=== PATIENT | male | born 1985 | race Caucasian/White ===

== ENCOUNTER 2018-08-03 11:16 | Emergency (ER) | payer MEDICAID, SELFPAY ==
[2018-08-03 11:17] VITALS: BP 131/78; PULSE 100; RESP 18; TEMP 36.9; O2SAT 98; BMI 28.8
--- NOTE | 2018-08-03 14:25 | ED.VISSUMM ---
- ER Visit Summary Date of Service: 08/03/18 Chief Complaint: Constipation History of Present Illness: The patient is a 33 M with constipation over the past 5 days. He thinks this is secondary to Seroquel. He has no fever chills he has no abdominal pain. Physical Examination: Patient has a soft and nontender abdomen no obvious dural mass. Emergency Department Course and Treatment: Abdominal x-ray done per protocol demonstrates constipation. Patient will be discharged with [facility] Discharge stable condition Impression: Constipation This note was generated with [employer] dictation software. It may contain incorrect words, spelling, and punctuation that were not noted in review of the chart prior to signing ED Disposition - Plan for ED Patient: Disposition: Home or Assisted Living Chief Complaint: Constipation Instructions: ED Constipation Referrals: Care Physician,No Primary [Primary Care Provider] - 3-5 Days
[2018-08-03] MEDS: Electrolyte Solution/Peg's 4000 ML 2000 ML PO (14:54)
== END 2018-08-03 15:09 | disposition home or self-care (01) ==
PROVIDERS: Emergency Provider Emergency Medicine
DX: K59.00 Constipation, unspecified (principal); F20.9 Schizophrenia, unspecified; Z79.899 Other long term (current) drug therapy
CPT/HCPCS: 74018; 99282

== ENCOUNTER 2020-10-22 17:43 | Emergency (ER) | payer OTHER, MEDICAID, SELFPAY ==
[2020-10-22 17:45] VITALS: BP 142/85; PULSE 79; RESP 15; TEMP 36; O2SAT 99; BMI 30.2
--- NOTE | 2020-10-22 18:11 | ED.DCSUM_ITS ---
History of Present Illness Chief Complaint: Back Informant: Patient Onset: Today Current Severity: Mild Maximum Severity: Moderate Narrative: Patient presents secondary to right lower back pain while lifting boxes at work. He states he was lifting some boxes and trying to reach over a pile in front of him. He felt something pull in his right lower back. Anytime he attempts to turn or move he feels sharp pain. Pain does not radiate down his arms or legs. There was no direct trauma and no fall. Past Medical History - Allergies and Home Meds Allergies/Adverse Reactions: Allergies No Known Allergies Allergy (Verified 10/22/20 17:44) Primary Care Physician: Care Physician,No Primary [Primary Care Provider] - Past Medical History: - - Mental illness Smoking Status: Never smoker Review of Systems General: Denies: Chills, Fever Eyes: Denies: Visual changes - bilaterally ENT: Denies: Bilateral ear pain Cardiovascular: Denies: Chest pain Respiratory: Denies: Dyspnea, Cough Gastrointestinal: Denies: Abdominal pain, Vomiting, Diarrhea Genitourinary: Denies: Dysuria Musculoskeletal: Reports: Back pain. Denies: Extremity Pain Neurological: Denies: Headache, Weakness, Parasthesia Hematologic: Denies: Easy bruising, Easy bleeding Allergy: Denies: Uticaria Physical Exam Vital Signs/Narrative: Vital Signs Temp Pulse Resp BP Pulse Ox 10/22/20 17:45 96.8 F L 79 15 142/85 H 99 Inital Vital Signs reviewed: Yes General: Well nourished, Well developed Head: Normocephalic ENT: Moist mucous membranes Neck: Supple Cardiovascular: Regular rate, Regular rhythm Respiratory: No distress, CTA bilaterally Abdomen: Soft, Nontender Back: - - No midline thoracic or lumbar tenderness. Mild tenderness in the right low lumbar paraspinals. Extremities: Nontender, No edema Skin: Normal color, No rash Neurological: Alert, Oriented x3 Psychological: Normal affect Diagnostic/Tx/Re-eval - Medical Decision Making I discussed with the patient the pain is all muscular in nature. With no direct trauma and no midline tenderness I do not feel x-rays to be beneficial. He will be given naproxen and Flexeril along with Lidoderm patch. He is to follow-up with corporate care. ED Disposition - Plan for ED Patient: Disposition: Home or Assisted Living Diagnosis: Strain of lumbar paraspinal muscle Instructions: ED LUMBAR SPRAIN/STRAIN Prescriptions: cycloBENZAPRine HCl [Flexeril] 10 mg PO TID PRN #20 tab PRN Reason: Muscle Spasm Transmission Status: Pending to [id number] Lidocaine [Lidoderm Patch] 1 patch TOPICAL DAILY #3 patch Transmission Status: P[facility] to [id number] Naproxen [Naprosyn] 500 mg PO BID PRN PRN #20 tab PRN Reason: Pain Score 4-10 [id number] Referrals: [facility] [GROUP OF PHYSICIANS] - 2 Days for wound check
[2020-10-22] MEDS: Naproxen 500 MG Tablet PO (18:33)
[2020-10-22] MEDS: Lidocaine 5% Patch 1 PATCH TOPICAL (18:33)
[2020-10-22 18:36] VITALS: BP 129/88; PULSE 62; RESP 17; O2SAT 99
== END 2020-10-22 18:37 | disposition home or self-care (01) ==
LOC: ED 18:16
PROVIDERS: Emergency Provider Emergency Medicine
DX: S39.012A Strain of muscle, fascia and tendon of lower back, initial encounter (principal); X58.XXXA Exposure to other specified factors, initial encounter
CPT/HCPCS: 99285

== ENCOUNTER 2022-06-16 22:23 | Emergency (ER) | payer MEDICAID, SELFPAY ==
[2022-06-16 22:24] VITALS: BP 146/96; PULSE 85; RESP 18; TEMP 37.2; O2SAT 98; BMI 29.5
--- NOTE | 2022-06-16 23:54 | ED.VIS.DENTA ---
HPI History of Present Illness Chief Complaint: Dental Informant: patient Narrative Narrative: Worsening right upper dental pain past 3 days. No current hot and cold sensitivities no fevers. He has been having symptoms past few weeks. Had initial dental feeling approximately 7 weeks ago. Reported he returned last week stated initial procedure may hit a nerve, additional filling was performed. Hot cold sensitive resolved since then however pain increased past 3 days. Using Tylenol ibuprofen with no relief. He called the dentist today started on amoxicillin has an appointment tomorrow however due to unbearable pain comes to the ED today. Prior similar symptoms: Yes PFSH PFSH Medical History Back pain Fatigue Home Medications naproxen 250 mg tablet 250 mg PO BID PRN Pain 10/24/20 [History Last Taken Unknown] qeodon 80 mg PO QHS 10/24/20 [History Last Taken Unknown] acetaminophen 500 mg tablet 500 mg PO Q6H PRN Pain 06/16/22 [History Last Taken Unknown] hydrocodone-acetaminophen 5-325mg 5mg-325mg 1 tab PO Q6H PRN pain 1 day #4 tabs 06/16/22 [Rx Last Taken Unknown] Allergy/AdvReac Type Severity Reaction Status Date / Time No Known Allergies Allergy Verified 06/16/22 22:26 Family History Other Prostate cancer Social History Smoking Status: Former smoker alcohol intake: never ROS ROS ED Constitutional Constitutional ED: Denies chills, fever(s) or sweats Eyes Eyes: Denies change in vision ENT ENT ED: Reports other Details: Dental pain ; Denies dysphagia or sore throat Cardiovascular Cardiovascular: Denies chest pain, leg edema, palpitations or racing heartbeat Respiratory/Chest Respiratory/Chest: Denies cough, dyspnea or dyspnea on exertion Gastrointestinal Gastrointestinal: Denies abdominal pain, diarrhea, nausea or vomiting Genitourinary Genitourinary ED: Denies dysuria, hematuria or urinary frequency Musculoskeletal Musculoskeletal: Denies back pain, extremity pain or neck pain Integumentary Denies rash or wounds Neurologic Neurologic: Denies headache(s), paresthesias or weakness EXAM Physical Exam Const Vital Signs: 06/16/22 22:24 Temperature 99 F Temperature Source Temporal Pulse Rate 85 Respiratory Rate 18 Blood Pressure 146/96 H Blood Pressure Mean 112 Pulse Ox 98 Oxygen Delivery Method Room Air Positive well nourished and well developed General Appearance ED: well developed and NAD HEENT Reports moist mucous membranes HEENT Narrative: Tender to tooth percussion #5, filling was noted to be intact there is no gum swelling. There is slight maxillary swelling noted. No fluctuance. normocephalic and atraumatic Eyes PERRL, EOMs intact bilaterally and conjunctivae normal General Eye ED: Yes normal appearance of both eyes Neck no lymphadenopathy and supple General: Negative for tenderness Chest Wall Chest: Negative for tenderness Resp normal respiratory effort and normal air movement Effort and Inspection: symmetric chest movement; Negative for respiratory distress Cardio regular rate, regular rhythm and no murmurs Peripheral Pulses: pulses 2+ throughout GI normal to inspection, nondistended, normoactive bowel sounds and non-tender Palpation: Negative for guarding or rebound tenderness present Back/Spine no CVA tenderness and no thoracic nor lumbar tenderness Extremity normal to inspection General Extremety ED: Negative for edema or tenderness General Extremity: Negative for edema Neuro oriented x3 and no sensory deficits noted Sensorium / Orientation: awake and alert Skin no rashes or lesions noted and no wounds MDM MDM MDM Narrative Medical decision making narrative: Patient increasing dental pain is currently on amoxicillin. [facility] report is negative. He drove here, meds to bed for 4 tabs of hydrocodone. He will keep his dental appointment tomorrow. Discharge Plan Triage Chief Complaint: Dental ED Provider: Jean-Claude Duke Dx/Rx/DC Orders Clinical Impression: Dentalgia Instructions: ED Dental Pain Prescriptions: New hydrocodone-acetaminophen 5-325 mg tablet 1 tab PO Q6H PRN (Reason: pain) 1 Days Qty: 4 0RF No Action qeodon 80 mg PO QHS naproxen 250 mg tablet 250 mg PO BID PRN (Reason: Pain) acetaminophen 500 mg Tablet 500 mg PO Q6H PRN (Reason: Pain) Primary Care Provider: Care Physician,No Primary Referrals: Care Physician,No Primary [Primary Care Provider] - Activity Restrictions/Additional Instructions: Continue your amoxicillin antibiotic. Take pain medicine as prescribed. Keep your dentist follow-up tomorrow. Disposition Disposition: Home, Self Care
== END 2022-06-17 00:25 | disposition home or self-care (01) ==
PROVIDERS: Emergency Provider Emergency Medicine; Visit Provider Emergency Medicine
DX: K08.89 Other specified disorders of teeth and supporting structures (principal); Z87.891 Personal history of nicotine dependence
CPT/HCPCS: 99282

== ENCOUNTER 2023-06-22 14:18 | Emergency (ER) | payer MEDICAID, SELFPAY ==
[2023-06-22] VITALS (7 sets, daily range): BP systolic 128–140; BP diastolic 83–86; PULSE 80–95; RESP 16–18; TEMP 36.4; O2SAT 99–100; BMI 26.6
--- NOTE | 2023-06-22 14:42 | EKG12_ITS ---
Test Reason : DIZZY Blood Pressure : / mmHG Vent. Rate : 078 BPM Atrial Rate : 078 BPM P-R Int : 166 ms QRS Dur : 086 ms QT Int : 384 ms P-R-T Axes : 062 057 046 degrees QTc Int : 437 ms Normal sinus rhythm Normal ECG Confirmed by AARON LOERA, TAN ([id number]), online editor SERAFIN MANCERA ([id number]) on 06/24/2023 9:28:32 AM Referred By: Confirmed By:TAN WALKER MD
--- NOTE | 2023-06-22 14:42 | EX.ED.VIS.PS ---
HPI HPI - Psych History of Present Illness Chief Complaint: Suicidal Detail of Chief Complaint: Suicidal ideation Informant: patient Narrative Narrative: Patient presents to the emergency department with thoughts of self-harm. Patient states that he is schizophrenic. Patient compliant with his medications. Patient admits to hearing voices if he concentrates but usually cannot make out what they are saying or who they are. Patient for the last 3 days feeling like he has no options and feeling suicidal. Plan would be to hang himself. Patient is never attempted to harm himself before. He denies any overdoses or illicit drug use. Denies recent illness. Patient states that he just feels irritated and fatigued and complains of muscle spasms and he has felt this way all the time for the last 7 years. Denies homicidal ideations. [facility] Medical History (Updated 06/22/23 @ 18:[address] Stacie Mckeon DO) Back pain Fatigue Schizophrenia Home Medications naproxen 250 mg tablet 250 mg PO BID PRN Pain 10/24/20 [History Last Taken Unknown] qeodon 80 mg PO QHS 10/24/20 [History Last Taken Unknown] acetaminophen 500 mg tablet 500 mg PO Q6H PRN Pain 06/16/22 [History Last Taken Unknown] hydrocodone-acetaminophen 5-325mg 5mg-325mg 1 tab PO Q6H PRN pain 1 day #4 tabs 06/16/22 [Rx Last Taken Unknown] ziprasidone HCl 80 mg capsule (Geodon) 80 mg PO DAILY SCHIZOPHRENIA 06/22/23 [History Last Taken 06/21/23] Allergy/AdvReac Type Severity Reaction Status Date / Time No Known Allergies Allergy Verified 06/22/23 14:21 Family History Other Prostate cancer Social History Smoking Status: Former smoker alcohol intake: never ROS ROS ED Review of Systems ROS Unobtainable: other Constitutional Constitutional ED: Reports lethargy; Denies chills, fever(s), sweats or weight loss Eyes Eyes: Denies blurry vision, change in vision or diplopia ENT ENT ED: Denies rhinorrhea or sore throat Cardiovascular Cardiovascular: Denies chest pain, orthopnea or racing heartbeat Respiratory/Chest Respiratory/Chest: Denies cough, dyspnea, dyspnea on exertion, orthopnea or sputum Gastrointestinal Gastrointestinal: Denies abdominal pain, diarrhea, nausea or vomiting Genitourinary Genitourinary ED: Denies dysuria, hematuria or urinary frequency Musculoskeletal Musculoskeletal: Denies arthralgias, back pain, myalgias or neck pain Integumentary Denies abscess, Abrasions or rash Neurologic Neurologic: Denies headache(s) or weakness Psychiatric Psychiatric: Reports depression, suicidal ideation and suicidal thoughts; Denies anxiety Endocrine Endocrinology: Denies polydipsia, polyphagia or polyuria Hematologic/Lymphatic Hematologic/Lymphatic: Denies easy bleeding, easy bruising or lymphadenopathy Allergic/Immunologic Allergic/Immunologic ED: Denies mouth swelling, tongue swelling or urticaria EXAM Physical Exam Const Vital Signs: 06/22/23 14:18 06/22/23 16:00 06/22/23 20:37 Temperature 97.5 F L Temperature Source Temporal Pulse Rate 95 82 Respiratory Rate 18 16 16 Blood Pressure 140/83 H Blood Pressure Mean 102 Pulse Ox 100 99 Oxygen Delivery Method Room Air Room Air Positive well nourished and well developed General Appearance ED: well developed and NAD HEENT Reports TM's clear and moist mucous membranes normocephalic and atraumatic; Negative for trauma or tenderness Tympanic Membrane ED: Yes TM's clear Eyes PERRL and EOMs intact bilaterally General Eye ED: Negative for pale conjunctiva or scleral icterus Neck no lymphadenopathy, supple and no JVD General: Negative for tenderness Chest Wall inspection of chest normal and palpation of chest normal Chest: Negative for tenderness Resp normal respiratory effort and clear to auscultation bilaterally Effort and Inspection: Negative for respiratory distress or pain with movement Auscultation: Negative for rhonchi, wheezes or diminished lung sounds Cardio regular rate, regular rhythm, S1 normal heart sound, S2 normal heart sound and no murmurs Peripheral Pulses: pulses 2+ throughout GI normal to inspection, nondistended, normoactive bowel sounds, soft to palpation, non-tender, non-distended and no masses Back/Spine no CVA tenderness and no thoracic nor lumbar tenderness Extremity normal to inspection General Extremety ED: Negative for edema General Extremity: Negative for edema Neuro oriented x3, CN's II-XII intact bilaterally, no sensory deficits noted and gait normal Sensorium / Orientation: awake, alert, oriented to person, oriented to place and oriented to time Motor Exam: strength 5/5 throughout and strength abnormal Psych mental status grossly normal Psych Narrative: Patient feeling suicidal and feeling agitated. Speech somewhat flat and slowed. Skin no rashes or lesions noted and no wounds MDM MDM MDM Narrative Medical decision making narrative: Patient with history of schizophrenia. Presents with complaint of depression and suicidal ideation. Patient was evaluated by social media specialist who is in agreement that patient would benefit from inpatient hospitalization and she will make arrangements to have patient accepted at psychiatric facility. Lab Data Attestation: I reviewed the patient's lab results. Labs: Laboratory Results - last 24 hr 06/22/23 15:10 WBC 5.4 RBC 4.80 Hgb 14.8 Hct 43.3 MCV 90.2 MCH 30.8 MCHC 34.2 RDW Std Deviation 38.8 RDW Coeff of Oziel 11.8 Plt Count 244 MPV 11.4 Immature Gran % (Auto) 0.200 Neut % (Auto) 53.4 Lymph % (Auto) 35.3 [place] % (Auto) 9.3 Eos % (Auto) 0.9 Baso % (Auto) 0.9 Absolute Neuts (auto) 2.9 Absolute Lymphs (auto) 1.89 Nucleated RBC % 0 Sodium 138 Potassium 3.8 Chloride 108 H Carbon Dioxide 26.0 Anion Gap 4 L BUN 12 Creatinine 1.21 Estim Creat Clear Calc 81.15 Est GFR (MDRD) Af Amer 85 Est GFR (MDRD) Non-Af 71 BUN/Creatinine Ratio 9.9 L Glucose 123 H Calcium 9.2 Total Bilirubin 0.50 AST 18 ALT 40 Alkaline Phosphatase 46 Total Protein 7.5 Albumin 4.0 Globulin 3.5 Albumin/Globulin Ratio 1.1 Urine Opiates Screen NEGATIVE Urine Methadone Screen NEGATIVE Ur Barbiturates Screen NEGATIVE Ur Phencyclidine Scrn NEGATIVE Ur Amphetamines Screen NEGATIVE MDMA (Ecstasy) Screen NEGATIVE U Benzodiazepines Scrn NEGATIVE Urine Cocaine Screen NEGATIVE U Cannabinoids Screen NEGATIVE Ur Drug Screen Comment Ethyl Alcohol < 3.0 EKG Initial EKG: Attestation: I personally reviewed and interpreted this EKG as follows: Comments: Sinus rhythm with a rate of 78 bpm with no acute ST segment changes Discharge Plan Triage Chief Complaint: Suicidal ED Provider: Stacie Mckeon Dx/Rx/DC Orders Clinical Impression: Suicidal ideation, Depression Prescriptions: No Action qeodon 80 mg PO QHS naproxen 250 mg tablet 250 mg PO BID PRN (Reason: Pain) acetaminophen 500 mg Tablet 500 mg PO Q6H PRN (Reason: Pain) hydrocodone-acetaminophen 5-325 mg tablet 1 tab PO Q6H PRN (Reason: pain) 1 Days Qty: 4 0RF ziprasidone HCl [Geodon] 80 mg capsule 80 mg PO DAILY Rx Instructions: give with food (meal/snack) Primary Care Provider: Care Physician,No Primary Referrals: Care Physician,No Primary [Primary Care Provider] - Disposition Disposition: Psychiatric Hospital or Unit
[2023-06-22 15:42] LABS: Absolute Lymphocyte Count 1.89 X10^3/uL (0.83-4.51); Absolute Neutrophil Count 2.9 X10^3/uL (2.0-7.7); Basophil# 0.05 X10^3/uL; Basophil% 0.9 % (0-1); Eosinophil# 0.05 X10^3/uL; Eosinophils% 0.9 % (0-5); Hematocrit 43.3 % (40-54); Hemoglobin 14.8 g/dL (13.0-16.5); Lymphocyte # 1.89 X10^3/ul (0.83-4.51); Lymphocyte % 35.3 % (19-41); Mean Corp Hgb Conc 34.2 g/dL (32-36); Mean Corpuscular Hgb 30.8 pg (27.0-32.0); Mean Corpuscular Volume 90.2 fL (80-94); Mean Platelet Vol. 11.4 fl (6.2-12.0); Monocyte% 9.3 % (0-10); NRBC Flagged by Analyzer 0 % (0-5); Neutrophil # 2.85 X10^3/uL (2.7-7.7); Neutrophil % 53.4 % (47-70); Platelet Count 244 K/mm3 (150-450); RBC Distribution Width CV 11.8 % (11.6-14.6); RBC Distribution Width SD 38.8 fl (35.1-43.9); White Blood Count 5.4 K/mm3 (4.4-11.0)
[2023-06-22 15:55] LABS: ALB/GLOB Ratio 1.1 RATIO (0.9-2.4); AST(SGOT) 18 U/L (15-37); Alanine Aminotransfer ALT/SGPT 40 U/L (16-61); Alkaline Phosphatase 46 U/L (45-117); Anion Gap 4 (5-15); BUN 12 mg/dL (7-18); BUN/Creat Ratio 9.9 RATIO (10-20); Calcium,Total 9.2 mg/dL (8.5-10.1); Chloride 108 mmol/L (98-107); Creatinine, Serum 1.21 mg/dL (0.70-1.30); EST Glomerular Filtration Rate 71 mL/min (>60); Est Glom Filt Rate - Afr Amer 85 mL/min (>60); Estimated Creatinine Clearance 81.15 ml/min; Globulin 3.5 g/dL (2.2-4.2); Glucose 123 mg/dL (74-106); Potassium 3.8 mmol/L (3.5-5.1); Protein, Total 7.5 g/dL (6.4-8.2); Sodium Level 138 mmol/L (136-145)
[2023-06-22 16:13] LABS: Amphetamine Urine VISTA NEGATIVE (<1000 ng/mL); Barbiturate Urine VISTA NEGATIVE (< 200 ng/mL); Benzodiazepine Urine VISTA NEGATIVE (< 200 ng/mL); Cocaine Urine VISTA NEGATIVE (< 300 ng/mL); Ecstacy Urine VISTA NEGATIVE (< 500 ng/mL); Methadone Urine VISTA NEGATIVE (< 300 ng/mL); PCP Urine VISTA NEGATIVE (< 25 ng/mL); THC Urine VISTA NEGATIVE (< 50 ng/mL); Vista UDS pH Range 6
[2023-06-22 16:17] LABS: Alcohol, Blood (Medical)-Serum < 3.0 mg/dL
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
--- NOTE | 2023-06-23 00:03 | ED.RN ---
Report given to Eliana at [facility].
[2023-06-23 00:55] VITALS: BP 128/86; PULSE 82; RESP 16; TEMP 36.5; O2SAT 100
== END 2023-06-23 00:56 ==
PROVIDERS: Emergency Provider Emergency Medicine; Visit Provider Emergency Medicine
DX: R45.851 Suicidal ideations (principal); F20.9 Schizophrenia, unspecified; F32.A Depression, unspecified; Z87.891 Personal history of nicotine dependence; Z79.899 Other long term (current) drug therapy
CPT/HCPCS: 80053; 80307; 82077; 85025; 87811; 93005; 99284

== ENCOUNTER 2023-12-02 07:33 | Emergency (ER) | payer MEDICAID, SELFPAY ==
[2023-12-02 07:33] VITALS: BP 145/99; PULSE 75; RESP 16; TEMP 35.7; O2SAT 99; BMI 29.5
--- OUTSIDE RECORDS SUMMARY | 2023-12-02 08:09 | XMS RPT_ITS | CCD ---
Author Name Unknown Address [address] [place] [address] Organization [facility] Care Team Providers Care Earth Mover Name Role Phone No, Physician Primary Care Provider Unavailabl e KIM EDDYESH K. Admitting Unavailable EDDY, DAVIN K. Attending Unavailable ALALAO, BASHAR Consulting Unavailable NO, PHYSICIAN Primary Care Unavailable EDDY, DAVIN K. Consulting Unavailable EDDY, DAVIN K. Attending Unavailable ZAHRA EWING Admitting Unavailable ALALAO, BASHAR Consulting Unavailable VALENTINE, GISELLA C Admitting Unavailable VALENTINE, GISELLA C Attending Unavailable VALENTINE, GISELLA C Primary Care Unavailable NO, DOCTOR ON Consulting Unavailable NO, DOCTOR ON Referring Unavailable SIFUENTES, DIAN E Admitting Unavailable SIFUENTES, DIAN E Attending Unavailable SIFUENTES, DIAN E Primary Care Unavailable NO, DOCTOR ON Consulting Unavailable Unavailable Primary Care Provider Unavailabl e Self, Self Primary Care Provider Unavailabl e SELF, SELF Primary Care Unavailable REAGAN RUSHING Attending Unavailable SELF, SELF Referring Unavailable SELF, SELF Primary Care Unavailable CHRIS HEWITT Attending Unavailable SELF, SELF Referring Unavailable SELF, SELF Primary Care Unavailable REAGAN RUSHING Attending Unavailable SELF, SELF Referring Unavailable Allergies Allergy Classification Reported Allergen(s) Allergy Type Date of Onset Reaction(s) Facility (1 source) Lactose; Translations: [LACTOSE] Drug Allergy [facility] Repository Medications Current Medications Medication Drug Class(es) Dates Sig (Normalized) Sig (Original) doxepin hydrochloride 25 mg oral capsule (2 sources) Tricyclic Antidepressant Start: 07-07-2019 End: 08-01-2019 take 1 capsule by mouth once daily doxepin (SINEQUAN) 25 MG capsule Take 1 (one) capsule (25 mg total) by mouth nightly for 20 days . 20 capsule 0 07/12/2019 08/01/2019 Active QUEtiapine (2 sources) Atypical Antipsychotic QUEtiapine Fumarate (SEROQUEL PO) Take by mouth. 0 Active Completed/Discontinued Medications Medication Drug Class(es) Dates Sig (Normalized) Sig (Original) acetaminophen 325 mg oral tablet (2 sources) Start: 07-04-2019 End: 07-12-2019 take 1 tablet by mouth every four hours as needed acetaminophen (TYLENOL) tablet 650 mg Problems Problem Classification Problem Date Documented Da te Episodic/Chronic Anxiety disorders (3 sources) Anxiety; Translations: [Anxiety] Onset: 05-03-2019 05-03-2019 Chronic Essential hypertension (2 sources) Hypertensive disorder; Translations: [Hypertension] Onset: 07-10-2019 07-10-2019 Chronic Other ear and sense organ disorders (3 sources) Dermatitis of external ear; Translations: [Dermatitis of external ear] Onset: 05-03-2019 05-03-2019 Episodic Other gastrointestinal disorders (3 sources) Slow transit constipation; Translations: [Slow transit constipation] Onset: 05-03-2019 05-03-2019 Episodic Other injuries and conditions due to external causes (1 source) Abrasion; Translations: [Other injury of unspecified body region, initial encounter] Episodic Schizophrenia and other psychotic disorders (9 sources) Schizophrenia; Translations: [Schizoaffective disorder, depressive type ] Onset: 05-01-2019 07-03-2019 Chronic Results Test Name Value Interpretation Reference Range Facil ity Vital Signs Date Time Vital Sign Value Performing Clinician Guero lopez 04-16-2021 15:38-0400 Body temperature 98.01 [degF] Reagan Rushing PA-C Work Phone: [facility] 04-16-2021 15:38-0400 Diastolic blood pressure 65 mm[Hg] Reagan Rushing PA-C Work Phone: [facility] 04-16-2021 15:38-0400 Heart rate 81 /min Reagan Rushing PA-C Work Phone: [facility] 04-16-2021 15:38-0400 Respiratory rate 12 /min Reagan Rushing PA-C Work Phone: [facility] 04-16-2021 15:38-0400 Systolic blood pressure 109 mm[Hg] Reagan Rushing PA-C Work Phone: [facility] 07-12-2019 07:48-0400 Body Temperature 98.01 [degF] [facility] 07-12-2019 07:48-0400 BP Diastolic 75 mm[Hg] [facility] 07-12-2019 07:48-0400 BP Systolic 109 mm[Hg] [facility] 07-12-2019 07:48-0400 Pulse (Heart Rate) 68 /min [facility] 07-12-2019 07:48-0400 Pulse Oximetry 98 % [facility] 07-12-2019 07:48-0400 Respiratory Rate 16 /min [facility] 07-03-2019 17:44-0400 BMI (Body Mass Index) 29.53 kg/m2 [facility] 07-03-2019 17:44-0400 Body weight 90.72 kg [facility] 07-03-2019 17:44-0400 Height 175.3 cm [facility] 05-17-2019 07:35-0400 Body Temperature 97.3 [degF] [facility] 05-17-2019 07:35-0400 BP Diastolic 81 mm[Hg] [facility] 05-17-2019 07:35-0400 BP Systolic 118 mm[Hg] [facility] 05-17-2019 07:35-0400 Pulse (Heart Rate) 83 /min [facility] 05-17-2019 07:35-0400 Pulse Oximetry 97 % [facility] 05-17-2019 07:35-0400 Respiratory Rate 16 /min [facility] 05-01-2019 16:50-0400 BMI (Body Mass Index) 29.53 kg/m2 [facility] 05-01-2019 16:50-0400 Body weight 90.72 kg [facility] 05-01-2019 16:50-0400 Height 175.3 cm [facility] Encounters Encounter Date Encounter Type Care Provider Facility Start: 08-15-2021 ambulatory SELF SELF Facility:[facility] LOC Start: 07-05-2021 ambulatory SELF SELF Facility:[facility] LOC Start: 04-16-2021 ambulatory SELF SELF Facility:[facility] LOC Start: 04-16-2021 End: 04-16-2021 Office outpatient visit 15 minutes Reagan Rushing PA-C Work Phone: [facility] Procedures Date Procedure Procedure Detail Performing Clinician Start: 07-03-2019 Drugs of abuse urine screening test Ute Castillo Work Phone: Start: 07-03-2019 Complete blood count with white cell differential, automated Davin Eddy Work Phone: Start: 07-03-2019 Complete blood count with white cell differential, manual Davin Eddy Work Phone: Start: 07-03-2019 Comprehensive metabo lic 2000 panel - Serum or Plasma Davin Eddy Work Phone: Start: 07-03-2019 Ethanol [Mass/volume ] in Serum or Plasma Ute Castillo Work Phone: Start: 07-03-2019 LAVENDER TOP Ute Castillo Work Phone: Start: 07-03-2019 LIGHT BLUE TOP Ute Gonzalez Work Phone: Start: 07-03-2019 LIGHT GREEN TOP Ute Castillo Work Phone: Start: 07-03-2019 MINT GREEN TOP Ute Gonzalez Work Phone: Start: 07-03-2019 RAINBOW DRAW Ute Castillo Work Phone: Start: 07-03-2019 Thyrotropin [Units/v olume] in Serum or Plasma by Detection limit <= 0.005 mIU/L Davin Eddy Work Phone: Start: 05-04-2019 Urinalysis Davin Eddy Work Phone: Start: 05-02-2019 Basic metabolic 2000 panel - Serum or Plasma Davin Eddy Work Phone: Plan of Treatment Date Care Activity Detail Author Start: 04-16-2031 Tetanus vaccination [facility] Start: 07-31-2021 Influenza vaccination INFLUENZ A VACCINE (Season Ended) [facility] Start: 02-20-1996 HIV screening HIV SCREENING DISCUSSI ON [facility] Start: 1995 COVID-19 VACCINE (1) COVID-19 VACCIN E (1) [facility] Start: 1985 Hepatitis C antibody , confirmatory test HEPATITIS C VIRUS SCREENING [facility] Immunizations Immunization Date Immunization Notes Care Provider Fa cility 04-16-2021 diphtheria, tetanus toxoids and acellular pertussis vaccine, unspecified formulation Reagan Rushing PA-C Work Phone: [facility] Work Phone: 04-16-2021 tetanus toxoid, redu qi diphtheria toxoid, and acellular pertussis vaccine, adsorbed; Translations: [TDAP VACCINE >10YO 0.5ML IM] Reagan Rushing PA-C Work Phone: [facility] Payers Date Payer Category Payer Unknown [facility] [id number] 2021-Present [id number] 2018 Unknown xxxxxxxxxxxx [id number] 2018 Unknown [id number] 1985 Unknown [id number] 1985 Unknown [id number] 1985 Unknown [id number] 1985 Unknown [id number] 1985 Unknown [id number] 1985 Unknown [id number] 1985 Unknown [id number] Social History Date Type Detail Facility Start: 07-11-2019 End: 04-16-2021 Tobacco smoking status NHIS Never smoker [facility] Start: 05-01-2019 History SDOH Alcohol Frequency 1 [facility] Start: 1985 Sex Assigned At Not on file [facility] Start: 04-16-2021 Tobacco use and exposure Never used [facility] Start: 04-16-2021 Alcohol intake Ex-drinker (finding) [facility] Exposure to SARS-CoV-2 (event) Not sure [facility] History of Present illness Narrative 04-16-2021 Reagan Rushing PA-C - 04/16/2021 3:25 PM EDT Note Date & Type Note Facility 04-16-2021 History of Presen t illness Narrative [facility] PATIENT NAME: Ivan Renae DATE OF : 1985 DATE OF VISIT: 04/16/2021 PROVIDER: Reagan Rushing PA-C HISTORY OF PRESENT ILLNESS: Ivan Renae is a 36 y.o. male who is presenting today with Immunization/Injection (scratch dorsal aspect of right hand on a nail yesterday needs tetanus updated ) Patient with 1 day of abrasion dorsal aspect right hand after scraping hand on raul drain pipe; here for update on tetanus vaccine. Denies signs of infection, fever/chills, nausea/vomiting. States he cleaned wound after injury. VITAL SIGNS: Vitals: 04/16/21 1538 BP: 109/65 Pulse: 81 Resp: 12 Temp: 98 degrees F (36.7 degrees C) TempSrc: Temporal ALLERGIES: Patient has no known allergies. MEDICATIONS: Outpatient Medications Prior to Visit Medication Sig Dispense Refill QUEtiapine Fumarate (SEROQUEL PO) Take by mouth. No facility-administered medications prior to visit. PAST MEDICAL HISTORY: Past Medical History: Diagnosis Date Mood disorder PAST SURGICAL HISTORY: No past surgical history on file. FAMILY HISTORY: History reviewed. No pertinent family history. SOCIAL HISTORY: Social History Tobacco Use Smoking status: Never Smoker Smokeless tobacco: Never Used Substance Use Topics Alcohol use: Not Currently REVIEW OF SYSTEMS: Review of Systems Constitutional: Negative for chills and fever. HENT: Negative for ear pain. Eyes: Negative for pain. Respiratory: Negative for cough. Cardiovascular: Negative for chest pain. Gastrointestinal: Negative for abdominal pain. Genitourinary: Negative for dysuria. Musculoskeletal: Negative for back pain. Skin: Negative for rash. Neurological: Negative for dizziness and headaches. Psychiatric/Behavioral: Negative for confusion. All other systems reviewed and are negative. PHYSICAL EXAM: Physical Exam Vitals and nursing note reviewed. Constitutional: General: He is not in acute distress. Appearance: Normal appearance. He is not ill-appearing or toxic-appearing. HENT: Head: Normocephalic and atraumatic. Nose: Nose normal. Eyes: Conjunctiva/sclera: Conjunctivae normal. Cardiovascular: Rate and Rhythm: Normal rate and regular rhythm. Heart sounds: Normal heart sounds. Pulmonary: Effort: Pulmonary effort is normal. Breath sounds: Normal breath sounds. Musculoskeletal: Cervical back: Normal range of motion and neck supple. Skin: Findings: Abrasion present. Comments: 1 cm linear abrasion noted dorsal right hand overlying 4th metacarpal; scabbed. Minimal TENDERNESS TO PALPATION and 1 mm of surrounding erythema. No edema, drainage, warmth noted. RANGE OF MOTION of hand/fingers intact. Neurovascularly intact. Neurological: Mental Status: He is alert. LAB RESULTS: No results found for this or any previous visit (from the past 2 hour(s)). ASSESSMENT & PLAN: Ivan was seen today for immunization/injection. Diagnoses and all orders for this visit: Abrasion - Tetanus, Diphtheria, and Acellular Pertussis Vaccine 5-2-15.5 LF-MCG/0.5 Suspension; Inject 0.5 mL intramuscularly Once (In Clinic) for 1 dose. - TDAP VACCINE >10YO 0.5ML IM documented in this encounter [facility] Instructions 04-16-2021 Patient Instructions Note Date & Type Note Facility 04-16-2021 Instructions Reagan Rushing PA-C - 04/16/2021 3:25 PM EDT Images from the original note were not included. Instructions From Your Provider Today Please watch out for signs of worsening infection (increasing redness, pain, swelling, drainage that looks like pus or has a foul odor, red streaking, fever/chills, nausea/vomiting) and be re-evaluated right away if you notice any of these. Scrapes (Abrasions): Care Instructions Your Care Instructions Scrapes (abrasions) are wounds where your skin has been rubbed or torn off. Most scrapes do not go deep into the skin, but some may remove several layers of skin. Scrapes usually don't bleed much, but they may ooze pinkish fluid. Scrapes on the head or face may appear worse than they are. They may bleed a lot because of the good blood supply to this area. Most scrapes heal well and may not need a bandage. They usually heal within 3 to 7 days. A large, deep scrape may take 1 to 2 weeks or longer to heal. A scab may form on some scrapes. Follow-up care is a varela part of your treatment and safety. Be sure to make and go to all appointments, and call your doctor if you are having problems. It's also a good idea to know your test results and keep a list of the medicines you take. How can you care for yourself at home? If your doctor told you how to care for your wound, follow your doctor's instructions. If you did not get instructions, follow this general advice: ? Wash the scrape with clean water 2 times a day. Don't use hydrogen peroxide or alcohol, which can slow healing. ? You may cover the scrape with a thin layer of petroleum jelly, such as Vaseline, and a nonstick bandage. ? Apply more petroleum jelly and replace the bandage as needed. Prop up the injured area on a pillow anytime you sit or lie down during the next 3 days. Try to keep it above the level of your heart. This will help reduce swelling. Be safe with medicines. Take pain medicines exactly as directed. ? If the doctor gave you a prescription medicine for pain, take it as prescribed. ? If you are not taking a prescription pain medicine, ask your doctor if you can take an [id number] medicine. When should you call for help? Call your doctor now or seek immediate medical care if: You have signs of infection, such as: ? Increased pain, swelling, warmth, or redness around the scrape. ? Red streaks leading from the scrape. ? Pus draining from the scrape. ? A fever. The scrape starts to bleed, and blood soaks through the bandage. Oozing small amounts of blood is normal. Watch closely for changes in your health, and be sure to contact your doctor if the scrape is not getting better each day. Where can you learn more? Go to http://www.lensgen.[employer].edu/patiented. Enter A374 in the search box to learn more about 'Scrapes (Abrasions): Care Instructions.' Interested in seeing a video go to https://lensgen.[employer].edu/videolibrary to see all video content. Current as of: January 25, 2020 Content Version: 12.8 [employer]. Care instructions adapted under license by your healthcare professional. If you have questions about a medical condition or this instruction, always ask your healthcare professional. [employer] disclaims any warranty or liability for your use of this information. Tdap (Tetanus, Diphtheria, Pertussis) Vaccine: What You Need to Know Why get vaccinated? Tdap vaccine can prevent tetanus, diphtheria, and pertussis. Diphtheria and pertussis spread from person to person. Tetanus enters the body through cuts or wounds. TETANUS (T) causes painful stiffening of the muscles. Tetanus can lead to serious health problems, including being unable to open the mouth, having trouble swallowing and breathing, or . DIPHTHERIA (D) can lead to difficulty breathing, heart failure, paralysis, or . PERTUSSIS (aP), also known as whooping cough, can cause uncontrollable, violent coughing which makes it hard to breathe, eat, or drink. Pertussis can be extremely serious in babies and young children, causing pneumonia, convulsions, brain damage, or . In teens and adults, it can cause weight loss, loss of bladder control, passing out, and rib fractures from severe coughing. Tdap vaccine Tdap is only for children 7 years and older, adolescents, and adults. Adolescents should receive a single dose of Tdap, preferably at age 11 or 12 years. women should get a dose of Tdap during every , to protect the from pertussis. Infants are most at risk for severe, life threatening complications from pertussis. Adults who have never received Tdap should get a dose of Tdap. Also, adults should receive a booster dose every 10 years, or earlier in the case of a severe and dirty wound or burn. Booster doses can be either Tdap or Td (a different vaccine that protects against tetanus and diphtheria but not pertussis). Tdap may be given at the same time as other vaccines. Talk with your health care provider Tell your vaccine provider if the person getting the vaccine: Has had an allergic reaction after a previous dose of any vaccine that protects against tetanus, diphtheria, or pertussis, or has any severe, life threatening allergies. Has had a coma, decreased level of consciousness, or prolonged seizures within 7 days after a previous dose of any pertussis vaccine (DTP, DTaP, or Tdap). Has seizures or another nervous system problem. Has ever had Guillain-Baker Syndrome (also called GBS). Has had severe pain or swelling after a previous dose of any vaccine that protects against tetanus or diphtheria. In some cases, your health care provider may decide to postpone Tdap vaccination to a future visit. People with minor illnesses, such as a cold, may be vaccinated. People who are moderately or severely ill should usually wait until they recover before getting Tdap vaccine. Your health care provider can give you more information. Risks of a vaccine reaction Pain, redness, or swelling where the shot was given, mild fever, headache, feeling tired, and nausea, vomiting, diarrhea, or stomachache sometimes happen after Tdap vaccine. People sometimes faint after medical procedures, including vaccination. Tell your provider if you feel dizzy or have vision changes or ringing in the ears. As with any medicine, there is a very remote chance of a vaccine causing a severe allergic reaction, other serious injury, or . What if there is a serious problem? An allergic reaction could occur after the vaccinated person leaves the clinic. If you see signs of a severe allergic reaction (hives, swelling of the face and throat, difficulty breathing, a fast heartbeat, dizziness, or weakness), call 07-31-1 and get the person to the nearest hospital. For other signs that concern you, call your health care provider. Adverse reactions should be reported to the Vaccine Adverse Event Reporting System (VAERS). Your health care provider will usually file this report, or you can do it yourself. Visit the VAERS website at www.vaers.hhs.gov or call . VAERS is only for reporting reactions, and VAERS staff do not give medical advice. The National Vaccine Injury Compensation Program The National Vaccine Injury Compensation Program (VICP) is a federal program that was created to compensate people who may have been injured by certain vaccines. Visit the VICP website at www.[facility].gov/vaccinecompensation or call to learn about the program and about filing a claim. There is a time limit to file a claim for compensation. How can I learn more? Ask your health care provider. Call your local or state health department. Contact the Centers for Disease Control and Prevention (CDC): ? Call (4-475-PBX-INFO) or ? Visit CDC's website at www.cdc.gov/vaccines Vaccine Information Statement (Interim) Tdap (Tetanus, Diphtheria, Pertussis) Vaccine 02/29/2020 42 U.S.C. 300aa-26 Department of Health and Human Services Centers for Disease Control and Prevention Many Vaccine Information Statements are available in Tristanian and other languages. See www.immunize.org/vis. Muchas hojas de informaci n sobre vacunas est n disponibles en espa ol y en otros idiomas. Visite www.immunize.org/vis. Care instructions adapted under license by your healthcare professional. If you have questions about a medical condition or this instruction, always ask your healthcare professional. [employer] disclaims any warranty or liability for your use of this information. 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 Advance Directives and Livin g Will 07/03/2019 6:56 PM Latest Code Status on File Code Status Date Activated Date Inactivated Comments Full Code - Unverified 07/04/2019 12:39 AM Full Code - Unverified 05/01/2019 7:51 PM 07/03/2019 5:30 PM Documents on File Type Date Recorded 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 male, single, unemployed, resident [facility] had presented to the emergency department verbalizing suicidal and homicidal ideations. Patient claimed that he was out for a walk and had negative thoughts to get the rope and hang himself from the tree in his front yard. Patient claimed that he had thoughts of lkilling his parents. Patient claimed that he had imagesof taking baseball bat and attacking them with it. Patient has been experiencing intrusive thoughts and claimed that as a result he had not been able to sleep. Patient claimed that he had been experiencing hearing voices and claimed that lately had feeling that he cannot take it anymore Patient stated that lately he would interaction with his parents had been negative and claimed thatthoughts of hurting is getting increasingly stronger. He had verbalized paranoid ideations that people on microphone and TV reporting that he has in his head. Patient has long history of psychiatric hospitalizations and treatment since 2017. Patient was treated at [facility] behavioral health unit from 05/01/2019 to 05/17/2019. Since discharge she was admitted to [facility] for psychiatry last month for 1 week. Patient claimed that hehas been hospitalized 11th time since 2017. Considering his deteriorating emotional state suicidal and homicidal thoughts and refusal to contract for the safety was admitted for further evaluation and treatment Discharge Diagnoses and Associated Hospital Course: Schizoaffective disorder, depressive type (HCC) During early course of hospitalization patient was suspicious and guarded, was preoccupied with auditory hallucinations. Patient was seen in individual supportive therapy and was strongly encourage to take prescribed medication. He was also encouraged to participate in group therapy, activities therapy. No agitated threatening destructive behavior noted. Denied of suicidal or homicidal plan or intent or thoughts. During the course of hospitalization patient was strongly encouraged to consider taking long-actinginjection, given his long history of noncompliance with oral dose of medication from time to time. Patient had strongly refused to consider taking long-acting injection. Consults placed Procedures ED Consult to PSYCH - Luggage Attendant (PSS) Hospitalize Patient To : Inpatient consult to Hospitalist Allergies Patient has no known allergies. Procedures performed No orders of the defined types were placed in this encounter. Other tests No orders of the defined types were placed in this encounter. Studies pending at discharge None Laboratory Results: No results found for: CHOL, HDL, LDLCALC, TRIG No results found for: HGBA1C Lab Results Component Value Date TSH 1.85 07/03/2019 Review of Systems: Constitutional: Denies fever, chills, diaphoresis, malaise Eyes: Denies blurred vision, double vision ENT: Denies nasal congestion, sore throat Neurological: Denies headache, photophobia, weakness, numbness CVS: Denies chest pain or palpitations Respiratory: Denies dyspnea or cough Musculoskeletal: Denies joint pain or muscle aches GI: Denies nausea, vomiting, constipation, or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 pain. No ankle swelling Resp:No dyspnea. No wheezing GI:No abdominal pain.No abdominal distention :No dysuria Neuro:No headache Integumentary:No skin rash MuscSkel:No arthralgias Endo:No polyuria Heme/lymphatic:No apparent lymphadenopathy Physical Examination: Vital Signs: BP 115/76 Pulse (!) 52 Temp 97.7 F (36.5 C) (Oral) Resp 16 Ht 5' 9 Wt 90.7 kg (200 lb) SpO2 99% BMI 29.53 kg/m Mental Status Evaluation: General Appearance & Behavior: age appropiate Grooming & Hygiene: street clothes Psychomotor Activity: psychomotor agitation Gait & Station stable gait Speech: mumbled and rambling Flow of Thought: concrete Thought Associations: Loose Content of Thought: active suicidal thoughts, homicidal ideation and paranoia Mood: stressed out Affect: anxious, worried, fearful, irritable, angry, labile, sad, depressed and hopeless Insight: fair Judgment: fair Orientation: alert and oriented to person, place, time, and circumstances Memory: intact recent and remote Attention: adequate Concentration: intact Language: intact Fund of Knowledge: estimated average intelligence Laboratory and Additional Data Reviewed: Medications 07/06/19 6:50 PM Treatment options and alternatives reviewed with patient. Risks, benefits, side effects of all psychiatric medications discussed with patient and informed consent obtained. All questions were answered. Davin Eddy MD 07/06/2019 6:45 PM * Sulma Long, TIFFANIE - 07/06/2019 5:15 PM EDT PT walking in hallway on the unit when approached for group. Pt willing to attend and this writing signed pt out and escorted him to [facility] for group. Group was presented with activity of Sequence, a board and card game. Pt attentive to directions and able to retain them well and apply them with strategy throughout group time. PT quiet and tense, limited with socialization, by choice. PT would smile appropriately when addressed. Benefits and resources presented. PT provided little to no feedback. * Norah Gupta LISW - 07/06/2019 2:54 PM EDT Reviewed patient's case with Dr. Eddy. Patient is making gradual, steady progress with symptom management. Dr. Eddy estimates that patient may be ready for discharge in 3-5 days. Met with patient on unit to monitor treatment progress. Patient has been compliant with meds and attending some group therapies. When he does attend group, his affect is flat with minimal/superficialinterpersonal interactions. Reviewed with patient that [facility] at 4pm with Kang for therapy and 07/21/19 at 9:30am with Rosaura Garcia CNP for meds - AVS updated. Patient agreeable to this follow up plan. Patient denies any further social service needs at this time. shipping services sales representative will continue to follow and assist with discharge planning. * Gaby Palafox CTRS - 07/06/2019 1:40 PM EDT Wellness: Pt was provided the opportunity to exercise in the exercise room. He selected to play ping pong for the full duration of group. He remains quiet though did initiate conversation on several occasions as he paid attention to what peers were discussing. * Maggie Ernandez LPN - 07/06/2019 11:36 AM EDT 0904: Patient has been up ambulating the unit, pacing the halls. Ate breakfast in the dining area. Maintaining fair eye contact, conversation appropriate. Patient mood flat appears preoccupied duringconversation, denies having and auditory or visual hallucinations. Dressed neat, casual preparing to attend group therapy. Denies any needs at this time, emotional support given. Medication compliant. Denies having any depression, voices a little anxiety and voices feeling it's related to the stimulus on the unit, emotional support continued. Pt informed of PRN medications available if needed and pt verbalizes understanding. Encouraged to seek staff for any needs and pt agrees. 0920: Attending group therapy on unit B33B. 1145: Dr. Eddy on the unit, seeing pt at this time. 1400: Attending group therapy on unit B33B at this time. Pt behavior has been quiet, guarded controlled and cooperative. Ate lunch in the lounge area with peers, no visitors this shift. Has been approaching staff Appropriately for any needs. * Gaby Palafox CTRS - 07/06/2019 9:10 AM EDT 0910 Goal: Pt states he is feeling positive. His goal today is to feel good. Steps to take include relax, think positive, read, breathe. His goal is important its hard to enjoy life if you don't feel good. 0945 Life Skills: Pt participated in a round table discussion on managing a mental illness. Among things that were discussed include tips to give someone who is newly diagnosed, how to give support to others, benefit of laughter/humor, motivational strategies, the effects that completing daily ADL's play on a persons mindset, medication management/compliance, benefits of support groups, relaxation strategies, problem solving scenarios, ways to stay organized, effects of weather, spirituality, music and nature on ones state of mind. Pt sat quietly and though appearing attentive, responses wereoften minimal and vague. * José Miguel Esquviel RN - 07/06/2019 2:36 AM EDT 2340 This RN assumes care of patient, present condition resting in bed, reading quiet, voices no current concerns or questions 0615 Patient has rested quiet overnight, appears to have slept 6 hours, resting still * Eleanor Slaughter, MUSA - 07/05/2019 6:04 PM EDT Patient up and about on unit. Quiet. Guarded. Watchful. Denies any suicidal or homicidal thoughts. States he continues to hear the same noise which he has been experiencing. Reads in room. No voiced complaints at this time. * Marge Morales, FRAME CLEANER - 07/05/2019 5:15 PM EDT 17:15 Recreation Therapy - Pt willingly joined group and actively participated in leisure awarenessactivity. Pt worked together with his team to brainstorm leisure resources and benefits. Pt calm and controlled at this time. Voiced one personal leisure interest as walking. * Norah Gupta LISW - 07/05/2019 3:47 PM EDT Reviewed patient's case with Dr. Eddy. Patient is making gradual, steady progress with symptom management. Dr. Eddy estimates that patient might be ready for discharge in 3-5 days. Met with patient on unit to monitor treatment progress directly and to follow up on unaddressed issues from yesterday. Patient indicated that he doing okay on the unit for now. He indicated that he is still following with the [facility] for outpatient services. He signed a release of information for this agency - WATCHMAKING TEACHER will coordinate follow up treatment on patient's behalf and update AVS with appointment information. Patient also accepted a safety plan to complete on his own - he is familiar with how to fill it out and agrees to turn it in to the nurse's station when he it is completed. Patient is aware that staff is available for help if needed. Patient denied any further social service needs at this time. shipping services sales representative will continue to follow and assist with discharge planning. NOTE: WATCHMAKING TEACHER printed off the initial treatment plan as completed by Dr. Eddy and presented it to thepatient for his review and signature. Patient reviewed the treatment plan and signed. WATCHMAKING TEACHER placed the treatment plan in patient's chart. Treatment plan update is due 07/08/19. Luggage Attendant will continue to follow patient and assist with discharge planning. * Davin Eddy MD - 07/05/2019 2:05 PM EDT Psychiatry Progress Note Patient Name: Ivan Renae Admit Date: 8031208 MR #: [id number] : 1985 Perpetual Assessment Ivan Renae is a 34 y.o. male refused to take medication earlier this morning. He was laying in the bed poorly groomed showing no interest in the surrounding. Patient was preoccupied with the delusional thoughts of people trying to do the brain washing and implanting things in his brain. Patient stated that he does not trust anyone as people have been manipulating his email. Patient claimed that drugs are controlling him and hence he did not want to takeit He remained extremely suspicious ,guarded, seclusive ,withdrawn has constricted affect. After long discussion, patient had agreed to take the prescribed medication this morning. Diagnosis & Plan/Recommendations Supportive therapy Psychopharmacological intervention Group therapy, activities therapy Following for Interval History: Review of Systems: Constitutional:No fever, no weight loss Eyes:No diplopia ENT:No sinus drainage CV:No chest pain. No ankle swelling Resp:No dyspnea. No wheezing GI:No abdominal pain.No abdominal distention :No dysuria Neuro:No headache Integumentary:No skin rash MuscSkel:No arthralgias Endo:No polyuria Heme/lymphatic:No apparent lymphadenopathy Physical Examination: Vital Signs: BP 132/82 (BP Location: Left arm, Patient Position: Sitting) Pulse 76 Temp 97.7 F (36.5 C) (Oral) Resp 16 Ht 5' 9 Wt 90.7 kg (200 lb) SpO2 96% BMI 29.53 kg/m Mental Status Evaluation: General Appearance & Behavior: age appropiate, minimally engaged and defensive Grooming & Hygiene: unkempt and street clothes Psychomotor Activity: psychomotor agitation Gait & Station stable gait Speech: pressured, mumbled and rambling Flow of Thought: concrete Thought Associations: Intact Content of Thought: active suicidal thoughts, homicidal ideation and paranoia Mood: depressed Affect: irritable, angry, sad, depressed and hopeless Insight: fair Judgment: fair Orientation: alert and oriented to person, place, time, and circumstances Memory: intact recent and remote Attention: adequate Concentration: intact Language: intact Fund of Knowledge: estimated average intelligence Laboratory and Additional Data Reviewed: Medications 07/05/19 2:15 PM Treatment options and alternatives reviewed with patient. Risks, benefits, side effects of all psychiatric medications discussed with patient and informed consent obtained. All questions were answered. Davin Eddy MD 07/05/2019 2:05 PM * Eleanor Slaughter RN - 07/05/2019 2:00 PM EDT Patient agreeable to take medications after talking with Dr. Eddy. Watchful and questioned medications but took all medications. * Marge Morales, FRAME CLEANER - 07/05/2019 1:30 PM EDT 13:30 Pt resting in bed and he declined to attend spirituality session. Voiced he was tired and notinterested in group focus. * Yudith Marquez CTRS - 07/05/2019 9:00 AM EDT Pt was resting in bed when approached for Goal Group and Life Skills. Pt declined to attend group at this time, stating that he was not feeling group right now. Pt was pleasant in interaction. Pt did not attend morning groups. * Eleanor Slaughter RN - 07/05/2019 8:00 AM EDT Patient resting in bed with eyes open. Alert and oriented. States he is hearing noise . States thenoise is about the same as he always hears. Denies any suicidal or homicidal thoughts. Guarded and preoccupied. Refusing all medications this morning. States he feels that the medication makes him worse. Behavior controlled. States he will talk with his doctor today and let him know that he feels the medication is making him worse. No voiced complaints at this time. 11:00 Dr. Eddy notified that patient is refusing all this medications. Encouraged patient to get out of bed. * Alberto Norman RN - 07/05/2019 6:00 AM EDT 0015 Patient resting quietly in bed, lights off and eyes closed. Respirations even and unlabored. 0600 Patient rested in bed for approximately 6.5 hours so far this shift. Patient resting quietly in bed, lights off and eyes closed. Respirations even and unlabored. * José Miguel Esquivel RN - 07/04/2019 10:02 PM EDT Alert and Orientation: yes Behavior: Guarded, seclusive, controlled, watchful Thought process, mood, affect, speech: Soft spoken, staring affect SI/HI/AH/VH: auditory Depression/Anxiety scale: Can not rate Activities today: Received books from mom, controlled, clean and neat Sleep, nutrition, ADL's: independent Goal for the day: Voices none Met/partially met/not met: Medications: Refused ordered medications Groups: None for second shift Patient had refused ordered Lamictal, was willing to take trazodone * Norah GuptaBRANDY - 07/04/2019 4:54 PM EDT Initial treatment plan by Dr. Eddy is not yet available for patient signature. WATCHMAKING TEACHER will check back tomorrow. shipping services sales representative will continue to follow and assist with discharge planning. * Trueamelia BRANDY Almazan - 07/04/2019 4:07 PM EDT WATCHMAKING TEACHER reviewed patient chart. Patient signed the voluntary psych consent. Signed release of information is present in chart for the following: Ernestine Renae - mother - [phone]. WATCHMAKING TEACHER attempted to meet with patient in patient's room on two separate occassions - patient asleep and resting soundly, not responding to multiple repeats of his name. WATCHMAKING TEACHER will introduce self and explain social sciences department chair role in patient's treatment, and to initiate the discharge planning process at next time patient is awake and alert/oriented. WATCHMAKING TEACHER reviewed basic psychosocial information from patient's chart in lieu of speaking with patient directly. (See SW psychosocial assessment note from 05/02/19 for more detailed information.) Per ED consult, current reason for hospitalization was his intrusive thoughts, not being able to sleep, and auditory hallucinations. Prior hospitalizations: Most recent hospitalization was at [facility] 05/02/19 to 05/16/19. Patient lives with his parents, does not have any access to weapons and has not reported abuse at home and feels safe returning upondischarge. Patient follows in the community with [facility] - ROSARIO willbe obtained for discharge planning once patient is alert and oriented. Referral for follow up will be obtained once ROSARIO is signed - AVS will be updated accordingly. WATCHMAKING TEACHER will work with patient to complete a safety plan once he is alert and oriented as well. Case discussed with Dr. Eddy and Halima BRITO. No other immediate discharge needs identified at this time. WATCHMAKING TEACHER will continue to follow patient and assist with discharge process. Treatment plan will be reviewed with patient when it becomes available and patient is alert and oriented. * Lois Granados LPN - 07/04/2019 8:42 AM EDT Administered hydroxyzine 50mg PO per pt request d/t feeling Anxious and agitated.' Pt is tense w/ fair to poor eye contact. Reports experiencing SI/HI w/ no plan.Contracted for safety. Pt has c/o not sleeping well, reported feeling restless throughout the night. Denied experiencing racing thoughts. Appetite fair w/ breakfast. Pt has been encouraged to drink fluids. Receptive. Pt has been reassured staff are here for support and or needs in which might arise throughout his day. Receptive. 09:[address] Eddy as well as Kendy Mayorga RN of pt reporting to this health technical writer he is experiencing SI/HI this AM. 12:04 Noted pt as being tense. Pt reports continuing to feel anxious and agitated. Reports feeling Agitated d/t the Thoughts and voices May be a part of it. Reports vistaril has not been effective. At this time, administered Geodon 20mg PO. Emotional support as well as encouragement given. Ptwas informed this health technical writer will check back w/ him regarding the effectiveness of geodon. 13:00 Resting quietly in bed to left side, eyes closed, eupneic. * Bessy Castillo RN - 07/04/2019 2:05 AM EDT 0200 Pt resting quietly in bed with eyes closed, resp even.15 min checks maintained for pt safety. 0400 Pt resting quietly in bed with eyes closed, resp even. 0700 Pt resting quietly in bed with eyes closed, resp even.15 min checks maintained for pt safety. Pt has rested ~ 6.5 hrs this shift. * Bessy Castillo RN - 07/04/2019 12:43 AM EDT 2129 Pt arrived on unit via w/c from ED escorted by Protective food service director and 1 ED staff, to be admitted to room [address] Eddy. Why is he/she admitted? Suicidal d/t audio hallucinations. He doesn't want to hear them any more. Pt also having homicidal ideation towards his parents. From where were they admitted: ED Admitting Physician, diagnosis: Da Herr Schizophrenia Behavior, Thought Process, SI/HI/AH/VH, mood, affect: Pt is cooperative and reports SI/HI/AH. Pt's Mood is depressed, affect is flat. Socioeconomic history: Pt lives with parents. Social needs: Pt is well connected with mental health services. Stressors: Off med for 1 week per doctor orders. Physical Assessment findings: Pt well nourished without medical issues. Psychiatric history: Long psych history. Family history: No family history of psych issues. Paternal grandfather and father have had prostate cancer. Maternal grandmother has had cancer (pt unsure what type). Emotional/Physical/Sexual Abuse history: Pt denies. Sleep, Nutrition, ADL's: Limitations: none Taking medication as directed?:yes Abnormal Labs: tox screen negative. Tobacco. Alcohol, Substance abuse: Pt denies all. Contraband search: No contraband found. Tour of unit: Pt stsed he was familiar with unit. Orders: Received and put into [facility]. Paperwork signed: yes Pt's goal for stay: To get stable. Where will he/she stay when discharged?: At home with parents Ride: parents documented in this encounter* Norah Gupta LISW - 05/17/2019 2:26 PM EDT Discussed case with attending physician today. Dr. Eddy is to discharge patient home today. Patient to follow-up with [facility] - will fax AVS to their agency oncecompleted. Safety Plan completed and reviewed. Patient reports feeling good and calm today with notably brighter affect and smiling spontaneously. Patient stated that he had a good visit with his mom last night and is ready for discharge. Patient denies any SI, HI, or hallucinations. Patient's mom to transport patient home. Case closed. * Yudith Marquez, FRAME CLEANER - 05/17/2019 1:30 PM EDT Pt was approached for Spirituality Group [id number] while watching TV. Pt declined to attend group secondary to discharging soon. * Divina Michel, FRAME CLEANER - 05/17/2019 9:00 AM EDT 9:00 Goal Group: Pt attended group stating feeling excited, because I am going home today . Facialexpression remained unchanged; flat/blunt. Stated goal to look into online courses to help with mycareer. Why this is important to pt I need to prepare for my next job. When asked where he had worked previously pt stated [employer] , did not elaborate, affect unchanged. 9:30 Life Skills: Pt attended group focusing on setting boundaries . Pt offered minimal input. 1X pt answered a group question spontaneously. Pt identified needing to set boundaries with his parents. * Lois Granados, ALISHA - 05/17/2019 8:06 AM EDT Patient ate breakfast in the dining area this AM, appetite was good. Med compliant w/ AM medicationregimen, pt knows his medications and uses well. Denied having any questions at this time. Currently remains in the dining area while working a puzzle. Reports not sleeping well, specifics include, per pt, I don't know I woke up several times. Denied having racing thoughts. Pt reports he did not sleep in the bed during the day hours yesterday. Pt reports feeling Moderately better compared to time of admission. Specifics include, per pt, Ahh I don't have as much tension as I did , also, When I came in I felt like my thoughts were difficult like it was getting to be too much now like there's less effort to it and feel like my days are more positive.' Pt then stated, I think I'm ready to go home , pt reports feeling more in control of his behavior and less agitated. Denied experiencing SI/HI. Contracted for safety. Reports plans to attend therapy groups per schedule. 09:45 Attending therapy group. 10:00 Returned to unit, as well as returning to dining table to continue working on [employer]. 13:55 Reviewed discharge summary as well as discharge medication regimen. Pt denied having questions. Pt denied having SI/HI. Reports plans to Drive to the park and 'Walk and just spend time thereas he enjoys being in the outdoors. Pt smiled spontaneously A few times while discussing discharge and plans after discharge. Reports plans to attend his follow up appt. Pt has been educated of the importance of him being med compliant and to not stop taking his medication w/out talking w/ his phys/DOPE FIRER. Receptive. 13:45 Pt approached this health technical writer [place] [facility] Diet sprite , provided as wellas this health technical writer informing pt she has his discharge ready to review w/ him. Pt replied, Okay , followed w/ a smile. This is the first smile this health technical writer has witnessed since time of admission. * Antonio Beckman RN - 05/17/2019 12:33 AM EDT 2330 Patient is resting quietly in bed.Respirations even and unlabored. 0200 Patient is sitting in dining area, talking with male patient. Encouraged to go to bed. 0400 Patient is resting quietly in bed. 0600 Patient has rested quietly this shift x 7 hours. * Norah Gupta LISW - 05/16/2019 5:35 PM EDT Patient remains on unit making gradual progress. Patient indicates that Dr. Eddy told him he will see how this evening's visit goes between patient and his parents to determine when he will be readyfor discharge. Patient states he hopes to be discharged tomorrow. * Gaby Palafox, FRAME CLEANER - 05/16/2019 5:15 PM EDT Recreation Therapy: Pt participated in playing a leisure board game he has learned earlier this admission called Sequence. He was able to recall game instruction easily and used appropriate strategy.Though he remains quiet, he seems to initiate conversation to clarify. Benefits were reinforced. Session lasted 55 minutes. * Robin Garcia, RN - 05/16/2019 4:19 PM EDT 1530 - at the beginning of the shift the pt found walking in the lounge and the pt denies pain and the pt denies other needs 1600 - The pt found in lounge and the pt agrees to interaction and the pt reports appetite good forbreakfast and supper and the pt states that after am scheduled meds that the pt experiences mild nausea and has not been very hungry for lunch and the pt reports sleep good and the pt denies si and the pt denies hi and the pt contracts for safety and the pt rates anxiety 1/10 and pt rates depression 4/10 and the pt denies hallucinations pt eye contact fair and affect congruent during interaction 1930 - The pt is sitting in dining area with with female visitor at the time of this writing 2300 - The pt has been quiet and cooperative and controled throughout the evening and spent majority of the evening outside of his room and retires to his room and remains resting in room at the timeof this writing * Marge Morales, FRAME CLEANER - 05/16/2019 2:55 PM EDT 14:55 [facility] - [facility] and was receptive to joining group. Pt chose to engage in ping-pong with good effort and skill exhibited. Pt affect brighter and pt was more spontaneous with interactions. Pt hopeful for DC tomorrow and plans to work on finding a place of his own and employment. Pt was more open with discussing his career and personal interests in plants and traveling. * Divina Michel CTRS - 05/16/2019 1:30 PM EDT Relaxation Group: 13:30 Pt was resting in bed when approached for group, refused to attend * Davin Eddy MD - 05/16/2019 12:59 PM EDT Psychiatry Progress Note Patient Name: Ivan Renae Admit Date: [id number] MR #: [id number] : 1985 Perpetual Assessment Ivan Renae is a 34 y.o. male was seen individually, case discussed with nursing staff medical records were reviewed. Patient stated that he is planning to look for a job after the discharge from the hospital to keep his mind occupied. Patient is somewhat seclusive, not interacting with peers or staff on unit. He was observed staring at times. Discussed once again regarding considering long-acting injection. Patient stated that during previous course of hospitalization at [facility] he was given an injection InvegaSustenna and did not like it . He did not elaborate in any detail about it. Diagnosis & Plan/Recommendations Following for Interval History: Review of Systems: Eyes:No diplopia ENT:No sinus drainage CV:No chest pain. No ankle swelling Resp:No dyspnea. No wheezing GI:No abdominal pain.No abdominal distention :No dysuria Neuro:No headache Integumentary:No skin rash MuscSkel:No arthralgias Endo:No polyuria Heme/lymphatic:No apparent lymphadenopathy Allergic/Immunologic:No hives Physical Examination: Vital Signs: BP 122/85 (BP Location: Right arm, Patient Position: Sitting) Pulse 73 Temp 97.9 F (36.6 C) (Oral) Resp 14 Ht 5' 9 Wt 90.7 kg (200 lb) SpO2 97% BMI 29.53 kg/m Mental Status Evaluation: General Appearance & Behavior: age appropiate Grooming & Hygiene: street clothes Psychomotor Activity: no psychomotor abnormalities or muscle atrophy noted Gait & Station stable gait and ability to rise from bed/chair without assistance Speech: soft spoken and slowed Flow of Thought: concrete Thought Associations: Intact Content of Thought: delusions Mood: anxious Affect: anxious, worried and fearful Insight: fair Judgment: fair Orientation: alert and oriented to person, place, time, and circumstances Memory: intact recent and remote Attention: adequate Concentration: intact Language: intact Fund of Knowledge: estimated average intelligence Laboratory and Additional Data Reviewed: Laboratory 05/16/19 1:07 PM Medications 05/16/19 1:07 PM Treatment options and alternatives reviewed with patient. Risks, benefits, side effects of all psychiatric medications discussed with patient and informed consent obtained. All questions were answered. Davin Eddy MD 05/16/2019 12:59 PM * Divina Michel CTRS - 05/16/2019 9:19 AM EDT 9:10 Goal Group: Pt attended group stating feeling well, my stomach is feeling better Stated goal to read Steps to reach this goal lay down and get comfortable Why this is important to pt It's the most productive thing I can do here . Pt was confronted on consistently identifying a superficial goal; reading, sleeping, walking, occupy his time, as opposed to treatment related goals. Pt stared at this health technical writer, not responding to confrontation. When asked if pt had discussed treatment related goals with his doctor, pt stated he hasn't said anything about it . 9:40 Life Skills: Pt attended life skills focusing on forward thinking through completion of futurevision worksheet, which had pt identify their personal vision of the future including what they pictured regarding the who, what, where, when, how of their future, as well as what they would need to start and stop doing for their vision to become a reality.Pt stated vision including working at a job related to my degree, start dating, rent an apartment maybe in [place], [place], [place] or [place], purchase a duplex or a home. Stated he had job interviews in the listed places. Identified needing to start: Studying, learning [employer], eating healthy and keep my cool Identified needing to stop being emotionally driven by behavior and having caffeine in the afternoon. . Pt's affect remained flat. Did not offer comment to peers disclosures. Pt did answer that he does have siblings including an identical twin brother that he feels he is close to. When asked if his brother has a mental illness, pt quietly snickered at stated no . Pt did share he has not contacted his brother stating I didn't think it was important for him to know I'm here * Jacki Israel RN - 05/16/2019 12:13 AM EDT 1213 Patient in bed resting with eyes shut breathing remains even and unlabored. 0205 Patient laying in bed resting with eyes shut laying supine. Breathing remains even and unlabored. 0411 Patient laying in bed resting with eyes shut. Breathing remains even and unlabored. 0635 Patient rested in bed with eyes shut for approximately 7 hours this shift. * Savannah Craven RN - 05/15/2019 4:42 PM EDT 1640 Patient is calm and socially appropriate. Patient denies any suicidal ideations. 1800 Patient has been friendly and socially appropriate during shift. 1931 Patient requested Tylenol for headache 2024 Patient pain improved. 2244 Patient requested Trazodone for sleep. Trazodone given see MAR. * Yudith Marquez CTRS - 05/15/2019 2:35 PM EDT Pt attended Exercise Group from 9315 - 9345 where they participated in Ping Pong with moderate effort. Pt was quiet throughout, engaging in conversation on approach. Pt's affect was noted to be brighterwith more frequent laughing, smiling and spontaneous conversation. Pt voiced appreciation for Ping Pong. * Eleanor Slaughter RN - 05/15/2019 12:06 PM EDT Patient up and about on unit. Quiet. Initiates with requests. States he slept well Behavior controlled and co-operative. Denies any suicidal or homicidal thoughts. Denies any auditory or visual hallucinations. No voiced complaints at this time.1400 Continues to contract for safety. No voiced complaints. * Davin Eddy MD - 05/15/2019 11:50 AM EDT Psychiatry Progress Note Patient Name: Ivan Renae Admit Date: [id number] MR #: [id number] : 1985 Perpetual Assessment Ivan Renae is a 34 y.o. male was seen individually Case discussed with nursing staff medical records were reviewed. Patient is pacing the floor, staring, mumbling to self, appears to be preoccupied with internal stimuli. His affect remains somewhat constricted. We will continue to monitor behavior closely. Will monitor medication compliance. Patient is still refusing to consider long-acting injection. Diagnosis & Plan/Recommendations . Following for Interval History: Review of Systems: Eyes:No diplopia ENT:No sinus drainage CV:No chest pain. No ankle swelling Resp:No dyspnea. No wheezing GI:No abdominal pain.No abdominal distention :No dysuria Neuro:No headache Integumentary:No skin rash MuscSkel:No arthralgias Endo:No polyuria Heme/lymphatic:No apparent lymphadenopathy Allergic/Immunologic:No hives Physical Examination: Vital Signs: BP 120/74 (BP Location: Left arm, Patient Position: Sitting) Pulse 81 Temp 97.7 F (36.5 C) (Oral) Resp 13 Ht 5' 9 Wt 90.7 kg (200 lb) SpO2 96% BMI 29.53 kg/m Mental Status Evaluation: General Appearance & Behavior: age appropiate Grooming & Hygiene: street clothes Psychomotor Activity: psychomotor agitation Gait & Station stable gait and ability to rise from bed/chair without assistance Speech: soft spoken and mumbled Flow of Thought: tangential Thought Associations: Intact Content of Thought: auditory hallucinations, delusions and paranoia Mood: stressed out Affect: fearful, irritable, angry and restricted Insight: fair Judgment: fair Orientation: alert and oriented to person, place, time, and circumstances Memory: intact recent and remote Attention: intact Concentration: intact Language: intact Fund of Knowledge: estimated average intelligence Laboratory and Additional Data Reviewed: Laboratory 05/15/19 11:57 AM Medications 05/15/19 11:57 AM Treatment options and alternatives reviewed with patient. Risks, benefits, side effects of all psychiatric medications discussed with patient and informed consent obtained. All questions were answered. Davin Eddy MD 05/15/2019 11:50 AM * Marquez, Erin, FRAME CLEANER - 05/15/2019 10:20 AM EDT Pt attended Goal Group and Life Skills Group from 9970 - 4500. Pt identified that goal from yesterday was met. Pt stated feeling well, my stomach feels good . Pt stated goal think positive and listed steps rest, relax and dismiss negative thoughts to help reach goal today. Pt attended Life Skills Group focusing on Stress Management and Relationships . Pt made good eye contact throughout. * Alberto Norman, MUSA - 05/15/2019 6:44 AM EDT 0644 Patient rested in bed for approximately 7 hours so far this shift. Patient resting quietly in bed, lights off and eyes closed. Respirations even and unlabored. * Savannah Craven RN - 05/14/2019 7:00 PM EDT 0645 Patient is calm and and cooperative. Patient answers questions when asked. Patient is guarded.Patient denies any suicidal ideations or homicidal ideations. 2255 Patient reports pt K. R. is intrusive and keeps him up at night. Patient would prefer to have a room further away from pt K. R. 2312 Patient requested Trazodone. * Marge Morales, FRAME CLEANER - 05/14/2019 2:30 PM EDT 14:30 Recreation Therapy - Pt willingly attended group and engaged in a previously learned leisure activity Outburst. Pt did well with task and calmly worked with his team. Pt affect brightens at times, overall he remains flat, guarded and superficial. Leisure benefits reviewed. * Davin Eddy MD - 05/14/2019 12:45 PM EDT Psychiatry Progress Note Patient Name: Ivan Renae Admit Date: [id number] MR #: [id number] : 1985 Perpetual Assessment Ivan Renae is a 34 y.o. male was seen individually Case discussed with nursing staff medical records were reviewed. Patient stated that he has been thinking of setting some goals and plans for the future, including moving out from the parents home, getting the job and to exercise by walking around the house or going for hiking. Patient stated that he has low confidence and self-esteem at this time and has been questioning hisability, as he had several setbacks and disappointments lately resulting from several psychiatric hospitalizations in past 2 years, currently making ninth hospitalization. Patient reported that he does not like to take the medication and that appears to be 1 of the major factor. Patient is still refusing to consider taking long-acting injection. He remains somewhat suspicious and guarded, Staring blank, appears to be responding to internal stimuli. Will continue to monitor medication compliance. He is participating in group therapy activities therapy Diagnosis & Plan/Recommendations Following for Interval History: Review of Systems: Eyes:No diplopia ENT:No sinus drainage CV:No chest pain. No ankle swelling Resp:No dyspnea. No wheezing GI:No abdominal pain.No abdominal distention :No dysuria Neuro:No headache Integumentary:No skin rash MuscSkel:No arthralgias Endo:No polyuria Heme/lymphatic:No apparent lymphadenopathy Allergic/Immunologic:No hives Physical Examination: Vital Signs: BP 123/79 (BP Location: Left arm, Patient Position: Sitting) Pulse 74 Temp 97.3 F (36.3 C) (Oral) Resp 14 Ht 5' 9 Wt 90.7 kg (200 lb) SpO2 96% BMI 29.53 kg/m Mental Status Evaluation: General Appearance & Behavior: age appropiate Grooming & Hygiene: street clothes Psychomotor Activity: no psychomotor abnormalities or muscle atrophy noted Gait & Station stable gait and ability to rise from bed/chair without assistance Speech: soft spoken and mumbled Flow of Thought: tangential Thought Associations: Intact Content of Thought: auditory hallucinations Mood: stressed out Affect: restricted Insight: fair Judgment: fair Orientation: alert and oriented to person, place, time, and circumstances Memory: intact recent and remote Attention: adequate Concentration: intact Language: fluent Fund of Knowledge: estimated average intelligence Laboratory and Additional Data Reviewed: Medications 05/14/19 12:57 PM Treatment options and alternatives reviewed with patient. Risks, benefits, side effects of all psychiatric medications discussed with patient and informed consent obtained. All questions were answered. Davin Eddy MD 05/14/2019 12:45 PM * Marge Morales, FRAME CLEANER - 05/14/2019 10:05 AM EDT 10:05 Goal Group - Pt waiting in the lounge, ready for group. Voiced feeling nauseated, stated he usually is in the morning and feels it is from his medications. Information was passed along to nursing staff and pt was encouraged to discuss concern with . Identified Feeling: Content because I am accepting the things I cannot control. Stated Daily Goal: To walk at least four miles. Pt voiced this goal is important because, exercise helps me feel better. 10:35 Life Skills - Pt engaged in an experiential activity coping skills Jenga to explore stress causes, stress symptoms, the effects of stress and healthy methods of coping with stress. Pt voiced current stressors as unemployment, side effects of medications and things out of his control. Pt was able to cite positive coping skills as exercise, spending time with friends and reading. * Eleanor Slaughter RN - 05/14/2019 10:00 AM EDT Patient up and about on unit. Guarded and withdrawn. Affect dull. States he slept well last night. Denies any suicidal or homicidal thoughts. Denies any auditory or visual hallucinations. Keeps to self. Encouraged to talk with staff and to attend therapies. No aggressive behavior noted. Polite withstaff. No voiced complaints at this time. 1300 Family members visited. Out of room more. Initiates more with requests. No voiced complaints at this time. * lAberto oNrman, MUSA - 05/14/2019 1:14 AM EDT 0020 Patient resting quietly in bed, lights off and eyes closed. Respirations even and unlabored. 0647 Patient rested in bed for approximately 7.25 hours so far this shift. Patient resting quietly in bed, lights off and eyes closed. Respirations even and unlabored. * Davin Eddy MD - 05/13/2019 6:45 PM EDT Psychiatry Progress Note Patient Name: Ivan Renae Admit Date: [id number] MR #: [id number] : 1985 Perpetual Assessment Ivan Renae is a 34 y.o. male was seen individually, case discussed in multidisciplinary treatment team meeting, medical records were reviewed. 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 Patient has been living in the basement of the parents house and claimed that he had not been able to communicate with them and had been increasingly irritable. Patient is a pacing the floor, remains suspicious and guarded. Motor activities appeared in less agitated range. We will continue to monitor medication compliance. He is encouraged to participate in group therapy, activities therapy. Diagnosis & Plan/Recommendations . Following for Interval History: Review of Systems: Eyes:No diplopia ENT:No sinus drainage CV:No chest pain. No ankle swelling Resp:No dyspnea. No wheezing GI:No abdominal pain.No abdominal distention :No dysuria Neuro:No headache Integumentary:No skin rash MuscSkel:No arthralgias Endo:No polyuria Heme/lymphatic:No apparent lymphadenopathy Physical Examination: Vital Signs: BP 122/81 Pulse 69 Temp 97.5 F (36.4 C) (Oral) Resp 16 Ht 5' 9 Wt 90.7 kg (200 lb) SpO2 98% BMI 29.53 kg/m Mental Status Evaluation: General Appearance & Behavior: age appropiate Grooming & Hygiene: street clothes Psychomotor Activity: psychomotor agitation Gait & Station stable gait and ability to rise from bed/chair without assistance Speech: soft spoken Flow of Thought: thought blocking Thought Associations: Intact Content of Thought: delusions and paranoia Mood: anxious Affect: anxious, worried, fearful, irritable and restricted Insight: fair Judgment: fair Orientation: alert and oriented to person, place, time, and circumstances Memory: intact recent and remote Attention: adequate Concentration: intact Language: intact Fund of Knowledge: estimated average intelligence Laboratory and Additional Data Reviewed: Laboratory 05/13/19 6:53 PM Medications 05/13/19 6:53 PM Treatment options and alternatives reviewed with patient. Risks, benefits, side effects of all psychiatric medications discussed with patient and informed consent obtained. All questions were answered. Davin Eddy MD 05/13/2019 6:45 PM * Rae Hinojosa RN - 05/13/2019 5:15 PM EDT 1550 Pt is up and about on unit. Pt is clean and casually dressed. Pt has flat affect and delayed response times. Pt rates depression a 1 today. Pt rates anxiety a 2 today. Pt denies suicidal or homicidal ideation and self harm thoughts. When this health technical writer asked pt if pt was still hearing ticking sound pt said, I think . Pt also admits to seeing dark shadows out of the corner of his eye. Pt relates that the restless energy feeling was better today. Pt does relate some stomach upset this morning after medication, but upset subsided. Pt unable to recall if pt discussed stomach upset with Dr Eddy. Pt talked about 2 job interviews pt had with a [employer] in [place] prior to admission. Pt relates that pt has a bachelors and masters degree. Pt denies any other current needs/complaints. 1755 Pt sitting in lounge watching TV. 1936 Pt visiting with mother. 2103 Pt slightly more animated this evening. Pt smiling at times and even joking some with staff. Pt med compliant this shift. 2340 Pt resting in bed reading. Pt offered HS Trazodone, but pt refused. I want to try and sleep without it tonight. Pt denies any other current needs/complaints. 2253 Pt up to desk stating that pt changed mind about Trazodone. Trazodone given by Marilu Abel LPN. * Yudith Marquez CTRS - 05/13/2019 3:00 PM EDT Pt declined to attend Music Appreciation Group at 1500, stating I can't right now . Pt was using the restroom at the time of interaction. A foul odor was noted. * TrueNorah cisnerosBRANDY - 05/13/2019 2:35 PM EDT WATCHMAKING TEACHER printed off the treatment plan update and presented it to the patient for his review and signature. The patient reviewed the treatment plan update and signed. WATCHMAKING TEACHER placed the treatment plan update in the patient's chart. A treatment plan update will be due 05/20/2019. Also, patient has agreed to allow Dr. Eddy to speak with his parents. WATCHMAKING TEACHER verified ROSARIO on chart and will call to gather collateral information from parents and set up a family meeting if needed at Dr. Eddy's discretion. NOTE: Patient indicated that his parents are not available to speak until after 5pm. WATCHMAKING TEACHER will call then. shipping services sales representative will continue to follow and assist with discharge planning. 5:20pm: BRANDY spoke with patient's mother and informed her that patient had signed a release of information for both her and her to discuss patient's treatment. Specifically, WATCHMAKING TEACHER inquired about patient's baseline behavior and how patient acts when he is doing well. Mother indicated that when patient is doing well he is generally happy, talkative in a socially appropriate manner, not preoccupied or paranoid, and generally sleeps well. Mother explained that she knows patient is not doing well when he starts to isolate himself, becomes quiet/withdrawn, becomes paranoid and accuses peopleof following him or invading his privacy, and experiences sleep disturbance / disruption. Mother ind icated that she is open to a family meeting if Dr. Eddy desires - she requests notice one day in advance so she can report off of work to attend at Dr. Eddy's discretion. Mother asked if she can now call the unit to inquire about his progress now that there is a signed release of information - WATCHMAKING TEACHER affirmed this is the case. Mother is aware that she may contact social research assistant if she has any further concerns about patient's discharge planning. shipping services sales representative will continue to follow and assist with discharge planning. * Marge Morales CTRS - 05/13/2019 2:05 PM EDT 14:05 Pt declined to attend exercise. Pt calmly reading in his room. * Gaby Palafox, FRAME CLEANER - 05/13/2019 1:00 PM EDT Recreation Therapy: Pt was introduced to a new leisure card game called [employer]. He was able to catchon to game dynamics easily and utilized appropriate strategy. He continues to display a blunt affect and remains quiet as peers engage in active conversation. Discussed benefit of leisure. Following group, pt selects 2 books for the Hotelementshelf to read in his room. * Calderon Eliana R - 05/13/2019 11:37 AM EDT 1005-- pt agreed to sit down and talk with SN. Pt denies SI, HI or current aggression. Patient rates current anxiety 03/09 but does not request medication at this time. PT states that he believes he is making progress on the unit but is anxious being around the other patients he says the other patients sniff funny at me when I go for walks Pt states he also feels nauseous and wants to discussthat with my doctor today, it usually goes away after lunch but I don't eat much. Pt states his goal for the day is to feel better and talk with my doctor. Pt presents with flat affect. 1030-- Patient walked up an down hallway for approximately 5 mins then asked to join SN to make a puzzle. PT asked the SN questions and appeared focused on the puzzle. Pt maintained flat affect but smiled when SN finally got a puzzle piece to fit. Pt got up and walked away after another patient approached the table. * Toño Archer RN - 05/13/2019 10:11 AM EDT [address] clothes. Said he showered this morning. Wide eyed, has tense affect. Conversation a little more spontaneous. When asked about medication, replied, things seem to be going better. Nurse explained uses of meds. Went on to say, my mood and confidence seem to be improving, overall, I'm improving. Denies any suicidal thoughts. Much support offered. 1035 Attended group earlier. Spending time talking with a assistant [place] of [place] [facility] [place] 1440 Has spent brief periods of time in the unge. Minimal interaction noted with peers. * Marge Morales CTRS - 05/13/2019 9:05 AM EDT 09:05 Goal Group - Pt ready for group and willingly joined. Identified Feeling: Hopeful because I feel better. Stated Daily Goal: To finish the book I am reading now. Pt superficial with sharing. Affect indifferent and behavior was controlled. 09:30 Life Skills - Pt completed a wellness assessment to identify strengths and areas of improvement related to his health and well being. Pt voiced he could improve his daily structure and stated he would like to get a job. Voiced he has support but does not utilize it very often. Pt effort was fair and pt continued to be superficial with sharing. * Bessy Castillo RN - 05/12/2019 11:59 PM EDT 1159 PM Pt resting quietly in bed with eyes closed, resp even.15 min checks maintained for pt safety. 0635Pt resting quietly in bed with eyes closed, resp even.15 min checks maintained for pt safety. * Rae Hinojosa RN - 05/12/2019 6:05 PM EDT 1710 Pt is clean and casually dressed. Pt has been spending most of his time reading. Pt does pace halls at times. Pt relates some feelings of depression this AM. It seems to be after my meds in themornings. It has been better since the doctor put me on Artane, but it came back this morning. Its like a restless energy Pt rates anxiety a 2-3 today. Pt relates that tension and stress are much less than when first admitted. Pt denies suicidal or homicidal ideation and self harm thoughts. Pt admits to seeing an insect like thing on the table in group and hearing a constant ticking noise. Pt voiced being worried now that anger, paranoia, and pain are gone that pt will become anxious and weak . Emotional support provided. Pt denies any other current needs/complaints. 181 Pt attending group therapy. 2046 Pt has continued to be quiet and controlled. Pt keeps to self, but is cooperative upon approach. 2151 Pt med compliant with Lamictal, but refused need for Kenalog cream. 2248 Pt more conversational this evening. Pt talking about books pt has been reading. * Yudith Marquez CTRS - 05/12/2019 5:15 PM EDT Pt attended Recreational Therapy Group from 1714 - 1814 and was introduced to new positive leisure outlet of card game, [employer], requiring direction following and sequencing. Pt was able to learn game without difficultly, and play competitively. Pt was pleasant, cooperative and appropriate while in group. Pt was minimally social, only talking when directly asked a question. Pt was observed to smile/laugh at times. Pt thanked manufacturing group [facility] returning to his unit. * Alex Hernandez LPCC-S - 05/12/2019 2:34 PM EDT I met with the patient earlier to see how he was doing. Patient answered ok'. Patient continues topresent with very flat, blunt affect and does not initiate much conversation. I asked the patient if there were any other discharge needs and patient reported no other needs for discharge. * Alex Hernandez LPCC-S - 05/12/2019 2:30 PM EDT Patient's status/progress reviewed in clinical team meeting. Dr. Eddy reported that he increased the patient's Latuda and will continue to monitor patient's status. Discharge undecided at this time.Patient will return home to parents and followup is scheduled at [facility]. Patient has completed safety plan. * Gaby Palafox CTRS -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 intact Judgment: fair Orientation: alert and oriented to person, place, time, and circumstances Memory: intact recent and remote Attention: adequate Concentration: intact Language: intact Fund of Knowledge: estimated average intelligence Laboratory and Additional Data Reviewed: Medications 05/09/19 1:29 PM Treatment options and alternatives reviewed with patient. Risks, benefits, side effects of all psychiatric medications discussed with patient and informed consent obtained. All questions were answered. Davin Eddy MD 05/09/2019 1:23 PM * Kendy Steiner, MUSA - 05/09/2019 11:28 AM EDT 1130 Pt up and about the unit, guarded, wide eyed and watchful. Pt attended group therapy. Pt is med compliant. Does not offer much conversation. Remains controlled. Dressed casually, eye contact is staring. * Divina Michel CTRS - 05/09/2019 9:00 AM EDT Goal Group: Pt attended group stating feeling hopeful that I will be discharged Stated goal worktowards getting discharged Steps to reach this goal read, relax, exercise Why this is important to pt I'd like to get out . Pt is very superficial, offers very minimal input and puts forth minimal effort. Pt's affect is sullen, displays irritation when asked a question; slowly inhales, closes eyes momentarily, stares through therapist, affect remains unchanged. Pt does not engage in group discussion. Life Skills: Pt attended group focusing on process of change. Again pt put forth minimal effort, did not elaborate, was vague and disinterested. Stated his parents and his psychiatrist are his main supports, then did stated I don't talk about my feelings . Pt stated coping skills as; hiking and bike riding. Stated his change in his life will be completed today . * Kaylyn Gross RN - 05/09/2019 12:07 AM EDT 0000 To nursing station for Saline for contacts lenses which was given by staff. 0230 Patient resting in bed on right side at this time with eyes closed. Respirations even and unlabored in no apparent distress. See SP log for observations. 0400 Patient continues resting in bed on right side at this time with eyes closed. Respirations even and unlabored in no apparent distress. See SP log for observations. 0600 Patient continues resting in bed on right side at this time with eyes closed. Respirations even and unlabored in no apparent distress. See SP log for observations. 0630 Patient slept 4.5 hours to present without complaints. Patient remains in bed at this time. * Kaylyn Gross RN - 05/08/2019 5:49 PM EDT 1545 Sitting in lounge area watching TV with other peers at this time. 1640 Eating supper in lounge area. [address] in lounge as patient sat casually dressed. Behavior is controlled, cooperative, guarded, and watchful. Communicates needs to staff and responds to questions. Mood is depressed, dull, and flat. Thought process is alert and oriented. Patient reports to this health technical writer, my appetite is I am pretty hungry all the time, and I didn't sleep very good. Denies any suicidal and homi cidal ideations and voices. Rates anxiety 2/10 and depression /. Has been out on unit this shift. Eats meals in lounge. Takes meds without incident. Did not attend group today. Expecting visitors in this shift. Completed ADLS. Eye contact good with this health technical writer and contracts for safety. GOAL: Read 50 pages in my book tonight. 1755 In shower at this time. 1820 In room dressing at this time. 1838 Patient at sink at this time. 1920 Continues sitting in lounge at this time. 2014 Watching TV with other peers at this time. 2109 Continues sitting watching TV at this time. 8 Took HS Lamictal at this time without incident. * Davin Eddy MD - 05/08/2019 4:11 PM EDT Psychiatry Progress Note Patient Name: Ivan Renae Admit Date: [id number] MR #: [id number] : 1985 Perpetual Assessment Ivan Renae is a 34 y.o. male was seen individually Case discussed with nursing staff medical records were reviewed. Patient was observed lying in the bed, somewhat poorly groomed. Patient stated that he had been experiencing hearing voices that makes him somewhat angry, irritable However, he has been trying to control it. Patient admitted of poor impulse control and its impact on his behavior at home and in previous work places. He remains suspicious and guarded, seclusive withdrawn on the unit. Psychomotor activities appearedin little less agitated range. Diagnosis & Plan/Recommendations . Following for Interval History: Review of Systems: Eyes:No diplopia ENT:No sinus drainage CV:No chest pain. No ankle swelling Resp:No dyspnea. No wheezing GI:No abdominal pain.No abdominal distention :No dysuria Neuro:No headache Integumentary:No skin rash MuscSkel:No arthralgias Endo:No polyuria Heme/lymphatic:No apparent lymphadenopathy Allergic/Immunologic:No hives Physical Examination: Vital Signs: BP 130/87 (BP Location: Right arm, Patient Position: Sitting) Pulse 83 Temp 97.5 F (36.4 C) (Oral) Resp 16 Ht 5' 9 Wt 90.7 kg (200 lb) SpO2 97% BMI 29.53 kg/m Mental Status Evaluation: General Appearance & Behavior: age appropiate Grooming & Hygiene: street clothes Psychomotor Activity: psychomotor agitation Gait & Station stable gait and ability to rise from bed/chair without assistance Speech: soft spoken and hesitant Flow of Thought: organized Thought Associations: Loose Content of Thought: auditory hallucinations, delusions and paranoia Mood: frustrated Affect: depressed, restricted and blunted Insight: fair Judgment: fair Orientation: alert and oriented to person, place, time, and circumstances Memory: intact recent and remote Attention: adequate Concentration: intact Language: intact Fund of Knowledge: estimated average intelligence Laboratory and Additional Data Reviewed: Laboratory 05/08/19 4:17 PM Medications 05/08/19 4:17 PM Treatment options and alternatives reviewed with patient. Risks, benefits, side effects of all psychiatric medications discussed with patient and informed consent obtained. All questions were answered. Davin Eddy MD 05/08/2019 4:11 PM * Sulma Long, FRAME CLEANER - 05/08/2019 3:00 PM EDT PT not interested in group at this time. * Sulma Long CTRS - 05/08/2019 10:45 AM EDT PT seated out in TV lounge alone when approached for group. PT shared that he was not feeling well at this time and would be missing group. * Beti Kemp RN - 05/08/2019 10:15 AM EDT Pt has been sitting in the lounge watching television. Pt is well-groomed with good eye contact. Hehas a calm and guarded affect. Pt describes himself as paranoid and a schizophrenic. Pt denies suicidal ideations . Pt is not depressed. Pt says that he has more of an anger and tension issues that he says is getting better since he has been here. Pt says he only hears voices at night when he is sleeping. Pt says he did not sleep much last night even with the Trazadone prn at . Pt was compliantwith all am meds but says he no longer needs his scheduled. Pt says his medicine makes him tense asa side effect. Pt did not require any prns this am * Bessy Castillo RN - 05/08/2019 5:32 AM EDT Pt resting quietly in bed with eyes closed, resp even.15 min checks maintained for pt safety. * Bessy Castillo RN - 05/08/2019 3:00 AM EDT Pt resting quietly in bed with eyes closed, resp even. * Bessy Castillo RN - 05/08/2019 12:00 AM EDT Pt resting quietly in bed with eyes closed, resp even.15 min checks maintained for pt safety. * Kaylyn Gross RN - 05/07/2019 11:59 PM EDT 2356 Trazodone 100mg for sleep per patient request at this time. * Ivory George - 05/07/2019 9:04 PM EDT 05/07/19 1400 Clinical Encounter Type Visit Type Non Crisis Non Crisis Visit Initial;Rounding Visited With Patient Visit Length (minutes) 1-15 Situation: Routine Pastoral Care visit with patient on behavioral unit. Background: Ivan is a 34 y/o male who identifies as agnostic. [facility] His get emotional support from his parents as well. Assessment: Pastoral care involved beginning of spiritual assessment and compassionate presence. Recommendation: No referrals made. No follow-up needed at this time. Patient/Staff reminded that Cinder Pit Worker is on-call as needed. Ivory George MA [facility] [place] [address] Office: [email or web address] * Olga Lidia Carrizales RN - 05/07/2019 6:21 PM EDT Patient is alert and oriented to person, place, situation, and time. His affect is blunted and his mood remains depressed. Patient was given education over addition of Artane, signed for medication, and took first dose. He was happy that he was receiving this medication and hopeful that it would help. Patient was able to verbalize education given. Patient was also relieved to note an increase in his Trazodone had been ordered. He feels that he is still concerned about his difficulty sleeping, and feeling tense throughout the day. Patient has spent time out in TV area with his peer, minimally social, or reading a book in his room. His speech is soft and he holds a quiet prescience on the unit. Patient denies depression and states that he just feels anxious and tense this evening. He is pleasant in interaction and able to make all needs known. Safety precautions remain in place, will continue to monitor. * Davin Eddy MD - 05/07/2019 4:06 PM EDT Psychiatry Progress Note Patient Name: Ivan Renae Admit Date: 6011208 MR #: [id number] : 1985 Perpetual Assessment Ivan Renae is a 34 y.o. male was seen individually Case discussed with nursing staff medical records were reviewed. Patient stated that he was feeling somewhat tense and anxious restless and had difficulty relaxing.Patient is pacing the floor, remains suspicious and guarded. Admitted of auditory hallucinations and scary nightmares and its impact on his sleep pattern and increased feeling of lethargy and tiredness. Patient is a prescribed Artane 5 mg a.m. for akathisia. Patient is also on Inderal at this time. Wewill increase the dose of the Desyrel to 100 mg at bedtime and will monitor sleep pattern closely Diagnosis & Plan/Recommendations Following for Interval History: Review of Systems: Eyes:No diplopia ENT:No sinus drainage CV:No chest pain. No ankle swelling Resp:No dyspnea. No wheezing GI:No abdominal pain.No abdominal distention :No dysuria Neuro:No headache Integumentary:No skin rash MuscSkel:No arthralgias Endo:No polyuria Heme/lymphatic:No apparent lymphadenopathy Allergic/Immunologic:No hives Physical Examination: Vital Signs: BP 134/83 (BP Location: Right arm, Patient Position: Sitting) Pulse 89 Temp 98.2 F (36.8 C) (Oral) Resp 16 Ht 5' 9 Wt 90.7 kg (200 lb) SpO2 96% BMI 29.53 kg/m Mental Status Evaluation: General Appearance & Behavior: minimally engaged Grooming & Hygiene: street clothes Psychomotor Activity: psychomotor agitation Gait & Station stable gait and ability to rise from bed/chair without assistance Speech: pressured Flow of Thought: linear and goal directed and thought blocking Thought Associations: Intact Content of Thought: auditory hallucinations Mood: stressed out Affect: blunted Insight: intact Judgment: fair Orientation: alert and oriented to person, place, time, and circumstances Memory: intact recent and remote Attention: intact Concentration: intact Language: fluent Fund of Knowledge: estimated average intelligence Laboratory and Additional Data Reviewed: Medications 05/07/19 4:14 PM Treatment options and alternatives reviewed with patient. Risks, benefits, side effects of all psychiatric medications discussed with patient and informed consent obtained. All questions were answered. Davin Eddy MD 05/07/2019 4:06 PM * Awais Maggie Mohsen, CONSULTING SERVICES PROJECT MANAGER - 05/07/2019 10:33 AM EDT 0832: Pt has been up ambulating the unit, has showered this morning and is dressed casual for the day. Ate breakfast in the dining area with peers, no interaction with peers noted. Pt guarded with depressed, flat affect, polite maintaining appropriate conversation and good eye contact. Pt is washing clothes in laundry. Denies having any depression, voices a little anxiety but voices feeling better , emotional support given. Pt spoke of starting new medication and feeling good about it so far, stated his coping skills were walking and laughing, encouragement given. Pt voices plans to attend his scheduled group therapy sessions today and voices feeling they are helpful, continued encourag ement given. Medication compliant, denies any needs at this time. Pt encouraged to seek staff for any needs and pt agrees. 1030: Attending group therapy on unit B33B. 1127: Dr. Eddy on the unit, seeing pt at this time. 1315: Pt to nurse's station stating concerns with not being able to sleep at night, pt requesting to know if he has any new medication orders, checked orders and pt had no new orders at this time. Ptrequesting this nurse to call his doctor about new medications. Pt stating, I haven't been able to sleep well since no longer taking Seroquel . Informed pt I would let the doctor know. Phoned Dr. Eddy and he stated he has discussed these concerns with the pt today and was addressing his concerns. Pt informed, stating, ok, I remember now voicing he will go to his room and try to rest for awhile at this time, encouragement given. Pt mother here to visit this shift. Behavior has been quiet controlled and cooperative. 1427: In room, resting quietly in bed with eyes closed, no visible distress noted. 1515: [facility] television at this time. Pt stating, I feel a lot better after taking a nap, emotional support given. * Divina Michel CTRS - 05/07/2019 9:40 AM EDT 09:40-11:15 Goal Group: Pt attended group stating feeling well Stated goal to read more Steps to reach thisgoal finish the book I am reading, decide on what I am going to read next, read Why this is important to pt to keep my mind occupied . Pt did not offer any in put to group unless specifically asked a question. Continues to appear preoccupied, does get fidgety when asked a question. Answers are delayed and methodical. Life Skills: Pt attended group focusing on 5 factors that increase vulnerability to depression; lowself esteem, negative thinking, difficulty expressing feelings, limited support and poor stress management. Pt stated he did not have any of the factors. Did not put any input into topic. Stated he talks with his psychiatrist and states he can talk to his parents if I want to, I could . Affect blunt, expression wide eyed. * Courtney Moy LPN - 05/07/2019 12:19 AM EDT 0142 pt resting quietly in bed with eyes closed respirations unlabored 0456 continues to rest quietly in bed with eyes closed and respirations unlabored 0607 pt appears to have slept for approximately 5.5 hours * Michaela Antonio LPN - 05/06/2019 11:55 PM EDT [id number] at desk . Pt makes intense eye contact and is calm and polite. Dressed in street clothing t denies hearing or seeing anything at this time and agrees he feels better after taking the geodon today. Pt agrees to tell this health technical writer if starts to hear the voices or ticking ok 1649 Pt eats dinner in dining area going back to room to read while resting in bed. 1849 Pt remains resting in bed With eyes closed . 2049 Pt comes out to get a snack and sit in lounge . Pt denies needs at this time * Davin Eddy MD - 05/06/2019 9:03 PM EDT Psychiatry Progress Note Patient Name: Ivan Renae Admit Date: 6011208 MR #: [id number] : 1985 Perpetual Assessment Ivan Renae is a 34 y.o. male was seen individually Case discussed with nursing staff medical records were reviewed Nursing staff had reported that the patient was somewhat escalating was getting increasingly agitated pacing the floor. Patient had been preoccupied with the thoughts about having the implant in his head or in nasal or throat that causes tingling noise patient had claimed that voices were cursing at him. Patient was loud angry irritable during evaluation. He remained preoccupied with the paranoid delusional thought. He is increasingly suspicious and guarded. Psychomotor activities appeared in agitated range. Patient had received as needed Geodon 20 mg p.o. To control agitation. Diagnosis & Plan/Recommendations Will monitor medication compliance Encouraged to participate in group therapy activities therapy Continue supportive therapy Following for Interval History: Review of Systems: Constitutional:No fever, no weight loss Eyes:No diplopia ENT:No sinus drainage CV:No chest pain. No ankle swelling Resp:No dyspnea. No wheezing GI:No abdominal pain.No abdominal distention :No dysuria Neuro:No headache Integumentary:No skin rash MuscSkel:No arthralgias Endo:No polyuria Heme/lymphatic:No apparent lymphadenopathy Allergic/Immunologic:No hives Physical Examination: Vital Signs: BP 121/84 Pulse 82 Temp 97.8 F (36.6 C) (Oral) Resp (!) 20 Ht 5' 9 Wt 90.7 kg (200 lb) SpO2 97% BMI 29.53 kg/m Mental Status Evaluation: General Appearance & Behavior: hostile Grooming & Hygiene: street clothes Psychomotor Activity: psychomotor agitation Gait & Station stable gait and ability to rise from bed/chair without assistance Speech: pressured and rambling Flow of Thought: disorganized Thought Associations: Intact Content of Thought: auditory hallucinations Mood: stressed out Affect: restricted and blunted Insight: fair Judgment: fair Orientation: alert and oriented to person, place, time, and circumstances Memory: intact recent and remote Attention: adequate Concentration: intact Language: intact Fund of Knowledge: estimated average intelligence Laboratory and Additional Data Reviewed: Laboratory 05/06/19 9:09 PM Medications 05/06/19 9:09 PM Treatment options and alternatives reviewed with patient. Risks, benefits, side effects of all psychiatric medications discussed with patient and informed consent obtained. All questions were answered. Davin Eddy MD 05/06/2019 9:03 PM * Divina Michel CTRS - 05/06/2019 2:00 PM EDT Wellness/Relaxation Pt was sitting in lounge when approached for group, declined to attend relaxation. * Talya Ernandez CNP - 05/06/2019 1:57 PM EDT Hospital Medicine Inpatient Consult Follow-up 05/06/2019 Talya Ernandez CNP Patient: Ivan Renae Date of : 1985 (34 y.o.) PCP: No primary care provider on file. Referring Provider: Davin Eddy MD Consult: Holly Haas MD: Hospitalist assistance with medical management ASSESSMENT/PLAN: Anxiety Assessment & Plan Encourage compliance with medication, and coping skills therapy Dermatitis of external ear Assessment & Plan Add triamcinolone cream bid Slow transit constipation Assessment & Plan Add miralax and Senna. Encourage fluids Schizophrenia (HCC) Assessment & Plan Management plan by psychiatrist and staff, provide support with medication therapy to not interferewith psychiatric medications, manage medical conditions that can exacerbate mental health conditions. Pt is encouraged to attend therapy and be compliant with medications. 05/06/19 SUBJECTIVE: History Since Last Visit: Ear is improving. Constipation resolved. Improvement in conversation. BP and HR stable. Current Scheduled Meds: lamoTRIgine 50 mg Oral BID lurasidone 40 mg Oral Daily with breakfast propranolol 30 mg Oral Daily with breakfast traZODone 50 mg Oral Nightly triamcinolone Topical BID Review of Systems: All other systems reviewed and negative other than HPI OBJECTIVE: Physical Examination: BP 121/84 Pulse 82 Temp 97.8 F (36.6 C) (Oral) Resp (!) 20 Ht 5' 9 Wt 90.7 kg (200 lb) SpO2 97% BMI 29.53 kg/m General Appearance: Alert, well appearing, and in no acute distress. Alert and oriented to person, place, time and situation. and Agitated Behavior: minimally engaged Grooming & Hygiene: well groomed HEENT: Head - Normocephalic, atraumatic. Eyes - IDALIA bilaterally and EOMI . Intact Ears - normal external appearance, hearing .normal Nose - normal, no erythema. Throat - mucous membranes moist, pharynx without lesions. Neck: Supple, trachea midline. Cardiovascular: S1, S2 normal. No murmurs, rubs, clicks or gallops appreciated. Edema. no Respiratory: Lungs clear to auscultation, no wheezes, rales or rhonchi heard. Abdomen: Soft, non-tender, normal bowel sounds, non-distended, no masses or organomegaly appreciated. no dysuria, trouble voiding or hematuria Neurological: Grossly normal motor and sensory exam. No focal deficits ..Cranial Nerves II through VIII (General assessement of vision, eye movement, chewing, facial expression, and hearing): Grossly intact Musculoskeletal: No joint tenderness, deformity or swelling. Skin: Normal coloration and turgor. No rashes. Skin fold crack healing on left ear. Psych: Alert, oriented x 3. Mood: Depressed Laboratory and Additional Data Reviewed: Laboratory and Additional Data Reviewed: Reviewed 05/06/19 1:57 PM: No results found for this or any previous visit (from the past 24 hour(s)). CULTURES: Reviewed 05/06/19 1:57 PM Radiology/Imaging: Reviewed 05/06/19 1:57 PM * Sulma Long, FRAME CLEANER - 05/06/2019 1:00 PM EDT PT resting in bed when approached for group, willing to attend and was escorted to B33B by this health technical writer. Group was presented with options for group and they decided to learn new leisure skill of sequence, a card and board game. Pt attentive to directions, and retained them well. Pt able to play independently using strategy throughout. Patience and frustration tolerance good. Socialization minimal to none. Benefits and resources presented. Affect flat and distracted throughout group. * Alex Hernandez LPCC-S - 05/06/2019 12:49 PM EDT This worker printed off the treatment plan update and presented it to the patient for his review and signature. The patient reviewed the treatment plan update and signed. I placed the treatment plan update in the patient's chart. A treatment plan update will be due 06/12/2019. * Divina Michel CTRS - 05/06/2019 9:00 AM EDT 9:00-10:00 Goal Group: Pt attended group stating feeling content Stated goal work towards discharge Steps to reach this goal exercise, shower and talk to the doctor Why this is important to pt I would like to get out . Pt maintained a blunt affect, did not offer any input to group discussion, unless asked a specific question. Pt was evasive, lacks motivation towards change. Pt alluded to desire to not take his medication, at one point said something sarcastic in a mumbled tone and refused to repeatwith a negative tone. Life Skills: Pt attended group focusing on methods of managing stress. Pt completed worksheet, however did not offer any input to topic other than answering direct questions with vague answers. Pt was only able to identify hiking as a coping skill. Would not elaborate. Pt struggled with eye contact. * Julita Houston RN - 05/06/2019 7:37 AM EDT Pacing in the halls. Dressed in casual street clothes. VS taken. States slept a little better last night. Preoccupied with dull, blunted affect. Says feels hungry. Denies suicidal ideation and contracts for safety. 0810 Continues to pace in the halls after breakfast. Say his meal was good and that he got enough to eat. Rates his depression as a level 1/10 and his anxiety as a level 3/10. Tense. AM meds reviewedand was med compliant. 0857 Medicated with prn per anxiety. It might help. Continues to pace. Asked why feels nauseous after he eats, particularly today. Declined offer of Malaika Myst. Complained of boredom, saying thereisn't enough stimulation here and doesn't want to be here. Says will go to scheduled therapy group at 0900. 1005 Returned to the unit from scheduled therapy group. When asked how the group was, he responded Stressful. 1038 RN spent 1:1 with pt. He informed RN he is feeling stressed out and agitated . Put his hands up to his ears. Informed RN that he has had an implant in his head for 4 yrs either in his head or in his nasal airway or throat that causes him to hear a ticking noise or sometimes voices. Cursing and clearly agitated, voicing that he knows staff won't believe him. Says he no longer trusts the staff and that he can't live like this any longer and can't stand it anymore. I can't take it! Was resistive to the ideas of taking medication, offered either IM or PO Geodon. saying everything he's ever taken just makes him feel worse and doesn't help. Asked if can have Ativan but was informed this me dication is not ordered. Medicated with oral Geodon. Ate 2 containers of jello. Declined other food, saying stomach is upset. Support given. 1115 Awake in bed. Says is feeling a little bit better. 1155 DR Eddy updated. 1:[address] Eddy. Pt apologized to RN. When asked what he was apologizing or, he said for losing his temper. Was assured that being angry is a natural emotion and that he did not destroy anything and that staff wants him to feel free to come to us with his emotions and feelings and we want to be there for him. Pt voices that his stomach doesn't feel good. Refusing lunch. Declined offer of other food options. 1445 [place] [facility] * Courtney Moy LPN - 05/06/2019 2:15 AM EDT 0216 pt resting quietly in bed with eyes closed respirations unlabored 0410 continues to rest quietly in bed with eyes closed and respirations unlabored 0617 pt appears to have slept for approximately 7.25 hours * Marge Morales, FRAME CLEANER - 05/05/2019 5:15 PM EDT 17:15 Recreation Therapy - Pt on the phone upon approach, pt receptive to ending phone call to joingroup. Pt quickly learned new leisure skill [place] and completed game play without difficulty.Pt minimally interacted with group. Affect flat and indifferent. Leisure benefits and healthy coping discussed. * Kaylyn Gross RN - 05/05/2019 4:37 PM EDT 1540 In room in bed resting with eyes closed on left side at this time. 1630 Continues resting in bed with eyes closed on left side at this time. 1645 Eating supper in lounge at this time. 1725 In group at this time. [address] in hallway as patient stood casually dressed. Behavior is controlled, cooperative, guarded, and watchful. Communicates needs to staff and responds to questions. Mood is depressed, dull, and flat. Thought process is alert and oriented. Patient reports to this health technical writer, my appetite is fair, and I slept some, took a nap today. Denies any suicidal and homicidal ideations and voices. Rates anxiety and depression 02/06. Has been out on unit this shift. Eats meals in lounge.Takes meds without incident. Expecting visitors in this shift. Completed ADLS. Eye contact good with this health technical writer and contracts for safety. GOAL: Sleep better. 180 Tylenol 650mg for #3 headache and Vistaril 50mg for increased anxiety. 1850 Patient sitting in lounge at this time with other peers. 1900 Mother here to visit at this time. 2009 Patient reports good visit with Mother. 2125 Refused Lamictal. Administered Trazodone and Cream per order. 2220 In room in shower at this time. * Alex Hernandez LPCC-S - 05/05/2019 2:55 PM EDT Patient's status/progress was reviewed in clinical team meeting. Dr. Eddy reported that patient LOS is 5-7 days. * Alex Hernandez LPCC-S - 05/05/2019 2:40 PM EDT Behavioral Health Treatment Plan Update Date: 05/05/2019 Time: 09:40 am Patient Name: Ivan Renae Date of : 1985 Sex: Male Patient Active Problem List Diagnosis SNOMED CT(R) Date Noted Slow transit constipation SLOW TRANSIT CONSTIPATION 05/03/2019 Dermatitis of external ear DERMATITIS OF EXTERNAL EAR 05/03/2019 Anxiety ANXIETY 05/03/2019 Schizophrenia (HCC) SCHIZOPHRENIA 05/01/2019 Diagnosis Conklin I: Schizophrenia Chronic Undifferentiated Type in Acute Axacerbation Conklin II: No diagnosis Conklin III: Patient Active Problem List Diagnosis SNOMED CT(R) Date Noted Slow transit constipation SLOW TRANSIT CONSTIPATION 05/03/2019 Dermatitis of external ear DERMATITIS OF EXTERNAL EAR 05/03/2019 Anxiety ANXIETY 05/03/2019 Schizophrenia (HCC) SCHIZOPHRENIA 05/01/2019 Conklin IV: economic problems, educational problems, housing problems, occupational problems and otherpsychosocial or environmental problems Conklin V: 41-50 serious symptoms Expected Discharge Date: TBA ELOS: 5-7 Precautions Precautions: None Patient Presenting Issues: Patient's Primary Presenting Issue Patient's Primary Presenting Issue: Aggressive behavior Aggressive Behavior Symptoms: Current Aggressive Behavior Treatment Goals: Improvement of presenting issues Days To Improvement Of Goal: (5-7) Aggressive Behavior Interventions: Medication management/evaluation, Group psychoeduction, Individual psychoeducation Status Of Goal: Improved Patient's Secondary Presenting Issue Patient's Secondary Presenting Issue: Homicidal Homicidal Symptoms: Attempted Homicidal Goals: Free from homicidal thoughts Days To Improvement Of Goal: (5-7) Homicidal Treatment Interventions: Medication management/evaluation, Medication education, Group psychoeduction, Pain and symptom management Status Of Goal: Unchanged Patient's Other Presenting Issue Patient's Other Presenting Issue: Mood instablilty Mood Instability Symptoms: Mood Swings Mood Instability Treatment Goals: Stabilize mood Days To Improvement Of Goal: (5-7) Mood Instability Interventions: Medication management/evaluation, Individual psychoeducation, Grouppsychoeduction, Medication education Status Of Goal: Unchanged Patient's Stated Issue Patient Stated Issue: Auditory hallucinations Patient Stated Issue Goals: Free from auditory hallucinations Patient Stated Issue Interventions: Medication education, Group psychoeduction, Individual psychoeducation, Handouts psychoeducation Status Of Goal: Unchanged Precautions Precautions: None Seclusion/Restraint Date none Interventions to reduce Seclusion/Restraint none Patient Strengths Patient Strengths: Intellectual abilities Patient Limitations Patient Limitations: Lack of financial means, Lack of stable employment, Lack of stable housing Discharge Needs Anticipated Facility Type: Psychiatric aftercare Criteria For Discharge Criteria For Discharge: Maximum benefit obtained Additional Comments: Per the most recent progress not of Dr. Eddy: Patient stated that he has had difficulty concentrating and claimed that his mind is racing. Patient stated that memories from the past has been constantly in his mind. Patient claimed that when he is reading it makes him think that it relates to him and his paranoia is getting increasingly worse. Patient claimed that she did notlike being around people in hospital setting, stated I am judgmental about other people . Patient stated that because of his paranoia he had not been able to get a job or maintain the job for more than 3-6 months. Patient is prescribed Lamictal tab 50 mg 2Xdaily, Latuda 40 mg, Propanolol tab 30 mg, and Trazodone tab 50 mg. Patient has been attending therapy groups and safety plan is completed. Patient will followup with [facility] in [place]. Physician, Registered Nurse, Special Officer Automat, Adjunct Therapist included in treatment team discussion. Treatment team members present: Alex Lazo (Special Officer Automat), Gaby (Beh Therapy), and Nga (Nursing) Patient Signature Date Patient's Response To Treatment Plan: Physician Signature Date * Gaby Palafox CTRS - 05/05/2019 1:40 PM EDT 1340 Exercise: Pt participated in playing ping pong with peer. He was active in his participation level and observed initiating conversation with peer. Pt shared that he has worked out at [employer] in the past and enjoys hiking at [employer]. * Davin Eddy MD - 05/05/2019 12:34 PM EDT Psychiatry Progress Note Patient Name: Ivan Renae Admit Date: [id number] MR #: [id number] : 1985 Perpetual Assessment Ivan Renae is a 34 y.o. male was seen individually, case discussed with nursing staff medical records were reviewed Patient stated that he has had difficulty concentrating and claimed that his mind is racing. Patient stated that memories from the past has been constantly in his mind. Patient claimed that when he is reading it makes him think that it relates to him and his paranoia is getting increasingly worse. Patient claimed that she did not like being around people in hospital setting, stated I am judgmental about other people . Patient stated that he had worked at [email or web address] in [place] up to 3 months had toquit the job. He had appeared for the job interview at a [employer] and claimed that was extremely paranoid during the interview and was not offered the job. He claimed that he had another job offer in [place] and at the last moment it did not work out. 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 Patient stated that because of his paranoia he had not been able to get a job or maintain the job for more than 3-6 months. Diagnosis & Plan/Recommendations . Following for Interval History: Review of Systems: Eyes:No diplopia ENT:No sinus drainage CV:No chest pain. No ankle swelling Resp:No dyspnea. No wheezing GI:No abdominal pain.No abdominal distention :No dysuria Neuro:No headache Integumentary:No skin rash MuscSkel:No arthralgias Endo:No polyuria Heme/lymphatic:No apparent lymphadenopathy Allergic/Immunologic:No hives Physical Examination: Vital Signs: BP 135/80 (BP Location: Right arm, Patient Position: Sitting) Pulse 90 Temp 98.3 F (36.8 C) (Oral) Resp 16 Ht 5' 9 Wt 90.7 kg (200 lb) SpO2 97% BMI 29.53 kg/m Mental Status Evaluation: General Appearance & Behavior: age appropiate Grooming & Hygiene: street clothes Psychomotor Activity: psychomotor agitation Gait & Station stable gait and ability to rise from bed/chair without assistance Speech: rambling and slowed Flow of Thought: disorganized Thought Associations: Loose Content of Thought: auditory hallucinations, delusions and paranoia Mood: stressed out Affect: hopeless and blunted Insight: fair Judgment: fair Orientation: alert and oriented to person, place, time, and circumstances Memory: intact recent and remote Attention: adequate Concentration: intact Language: intact Fund of Knowledge: estimated average intelligence Laboratory and Additional Data Reviewed: Medications 05/05/19 12:46 PM Treatment options and alternatives reviewed with patient. Risks, benefits, side effects of all psychiatric medications discussed with patient and informed consent obtained. All questions were answered. Davin Eddy MD 05/05/2019 12:34 PM * Gaby Palafox, FRAME CLEANER - 05/05/2019 9:20 AM EDT 0920 Goal: Pt feeling tired because I did not get any sleep. His goal today is to try to sleep. Steps include lay down, rest, relax. Goal is important because I need to sleep. When asked what he has done to help him get sleep states I take a shower, made a pillow cover, go for a walk. Pt has a dull affect and speaks only when spoken to. 0940 Life Skills: Pt participated in the Life Skills game with topics focusing on Self Esteem, Stress Management, Healthy Living, Healthy Relationship, Decision Making and Communication. Pt shares heis a identical twin with the biggest difference between them being his twin is more outgoing. Pt remains vague/superficial in responding to questions and preoccupied and inattentive when peers were discussing. His affect blunt and pt guarded. * Julita Houston RN - 05/05/2019 8:47 AM EDT Walking in the [place] With head downcastafter completing ADL's. AM meds. Brief eye contact. Affect blunted and dull. Does not initiate or elaborate with conversation. AM meds reviewed and was med compliant without questions or hesitation. States his Coping skills are solitary ones such as hiking at [employer] or fishing. Says he likes to read but his concentration has been impaired. When asked, Said he did not sleep well. When asked what kept him from sleeping well, responded, Schizophrenia. Denied hearing voices, or feeling paranoid. Denied thoughts of self harm or of harming others. Contractedfor safety. 1130 Sleeping soundly in bed. Did not waken when RN called his name. 1225 Walking in hallway after lunch. Presented with education paper A transition: Discharge Planning receptive. 1400 Walking in the [place]. Says hasn't been sleeping well for the past 5 nights. Says it is making him terribly nervous. Declined prns at this time. * Courtney Tate RN - 05/05/2019 12:00 AM EDT 0000 Pt supine, eyes closed, breathing easy. 0200 Pt lying on right side, eyes closed, respirations regular. 0415 Pt lying on right side, eyes closed, eupneic. No needs identified at this time. 0610 Pt prone, head turned to left side, eupneic. Pt rested approximately 6 hours and 45 minutes this shift. * Davin Eddy MD - 05/04/2019 6:16 PM EDT Psychiatry Progress Note Patient Name: Ivan Renae Admit Date: [id number] MR #: [id number] : 1985 Perpetual Assessment Ivan Renae is a 34 y.o. male was seen individually Case discussed with nursing staff medical records were reviewed. Patient was pacing the floor in the hallway was smiling, staring mumbling to self, appears to be responding to some internal stimuli. Patient had refused to take the medication Lamictal and Latuda earlier this morning, claiming that the medication makes him anxious and shaky. Patient stated that hewould like to try without the medication. Discussed at length regarding his long history of emotional problems, 8 previous psychiatric hospitalizations and his recent unpredictable, escalating, assaultive behavior toward the parents. After long discussion, patient had agreed to take the prescribed medication and nursing staff was informed of the same. Diagnosis & Plan/Recommendations We will continue to monitor medication compliance Supportive therapy Group therapy activities therapy . Following for Interval History: Review of Systems: Constitutional:No fever, no weight loss Eyes:No diplopia ENT:No sinus drainage CV:No chest pain. No ankle swelling Resp:No dyspnea. No wheezing GI:No abdominal pain.No abdominal distention :No dysuria Neuro:No headache Integumentary:No skin rash MuscSkel:No arthralgias Endo:No polyuria Heme/lymphatic:No apparent lymphadenopathy Allergic/Immunologic:No hives Physical Examination: Vital Signs: BP 129/86 Pulse 77 Temp 97.9 F (36.6 C) (Oral) Resp 18 Ht 5' 9 Wt 90.7 kg (200 lb) SpO2 97% BMI 29.53 kg/m 2 Mental Status Evaluation: General Appearance & Behavior: age appropiate Grooming & Hygiene: street clothes Psychomotor Activity: psychomotor agitation Gait & Station stable gait and ability to rise from bed/chair without assistance Speech: soft spoken and pressured Flow of Thought: circumstantial and thought blocking Thought Associations: Loose Content of Thought: homicidal ideation Mood: frustrated Affect: restricted Insight: fair Judgment: fair Orientation: alert and oriented to person, place, time, and circumstances Memory: intact recent and remote Attention: intact Concentration: intact Language: intact Fund of Knowledge: estimated average intelligence Laboratory and Additional Data Reviewed: Laboratory 05/04/19 6:22 PM Medications 05/04/19 6:22 PM Treatment options and alternatives reviewed with patient. Risks, benefits, side effects of all psychiatric medications discussed with patient and informed consent obtained. All questions were answered. Davin Eddy MD 05/04/2019 6:16 PM * Divina Michel CTRS - 05/04/2019 5:15 PM EDT 17:15-18:00 Recreational Therapy. Pt attended group learning new coping skill through involvement of card game Golf, requiring decision making, paying attention to details adding and strategizing. Pt maintained a sullen affect, even with attempts to brighten pt's mood during activity. Pt was independent with play, did not engage in conversation with peers. Did answer question regarding leisure activities he and his family engaged in when pt was younger. Answers were brief, affect flat. While returning to unit, pt was asked if he felt he was feeling better. Pt replied I felt better, when I wasn't on any medication . * Alejandro Melvin RN - 05/04/2019 3:52 PM EDT Alert and Orientation: A&Ox3 Behavior: preoccupied, withdrawn, guarded, cooperative Thought process, mood, affect, speech: anxious, suspicious, dull affect, delayed speech SI/HI/AH/VH: denies Depression/Anxiety scale: 0 and 2/10 Activities today: ambulating unit Sleep, nutrition, ADL's: 7.5, appetite good, shower Medications: takes without incident Groups: attends 15:30 therapy group 16:30 eating in dining area 16:45 One on one interaction takes place [place] [facility] Patient (pt) is casually dressed. Pt states sleep was not good, I haven't taken the Trazodone. Pt states appetite good Pt denies HI/SI. Pt admits to hearing voices a little bit. Pt rates anxiety a 2/10 and depression a 0/10. Pt spends time out in common areas. Pt takes all medications cooperatively. Pt attends some groups. Pt completes ADL's- showers and brushes teeth. Pt makes fair eye contact when speaking. 20:30 Pt takes night time medications appropriately. Applied cream above left ear reddened area. 22:30 Pt heads to room to lie down * Divina Michel CTRS - 05/04/2019 1:10 PM EDT Recreational Therapy. Pt approached group room on his own, inquiring if he could join group. Pt wasinformed that he was scheduled for Wellness group at 1:30 but he could join the group if he chose to and then attend Wellness following group. Pt attended group learning new leisure outlet of [facility], focusing on following direction, socialization and recognition of play. Was quiet throughout, did not engage with peers or therapist. Independent with play, affect blunt. Following group, pt elected to not attend Wellness group * Gaby Palafox CTRS - 05/04/2019 9:15 AM EDT 0915 Goal: Pt reports he did not meet his goal from yesterday stating I did not sleep well. His feeling content. His goal today is to find a way to occupy my time. Steps include think, walk, shower. Goal is important because I need something to do. 0930 Life Skills: Pt participated in an experiential activity called Totika, which means 'well balanced'. Discussed areas in life where it is necessary to work on obtaining balance (work, leisure, finances, nutrition, exercise, relationships etc). Pt worked on stacking blocks on top of the tower in attempting to keep it stable and not fall over while answering questions pertaining to self esteem.He reports he is a loner , likes fishing and being outdoors. He remains watchful though does appear less paranoid than yesterday. * Julita Houston RN - 05/04/2019 8:59 AM EDT Walking in the hallway. Dressed appropriately in street clothes. Verbal responses are slightly delayed. Reviewed scheduled AM meds. He responded that he did not want to take the Lamictal or the Latuda. Stated it makes him feel hot and cold and increases his anxiety. Said he has been on several other meds and hasn't had a good reaction to any of them. When asked to be specific, said they all made him feel anxious, including the Seroquel which was his last medication. I want to see how I am withno major meds. He is willing to discuss med taking with DR Eddy when DR Eddy rounds. 1010 Pacing in the hallway. 1100 1:[address] Eddy. 1124 Med compliant. 1500 Pacing in the hallway. Head and eyes downcast. * Savannah Craven RN - 05/04/2019 12:16 AM EDT 2350 Patient in bed sleeping. 0200 Patient sleeping. 0405 Patient sleeping. 0630 Patient sleeping. 0645 Patient sleeping. * Kaylyn Gross RN - 05/03/2019 5:29 PM EDT 1540 At nursing station advising this health technical writer he is feeling bad after taking his medications that the doctor wanted him to take. 1558 Vistaril 50mg given for anxiety per patient request. 1640 Eating supper in lounge area at this time. [address] at nursing station as patient stood casually dressed. Behavior is controlled, cooperative, guarded, and watchful. Communicates needs to staff and responds to questions. Mood is depressed, dull, and flat. Thought process is alert and oriented. Patient reports to this health technical writer, my appetite is fair, and I slept pretty bad. Denies any suicidal and homicidal ideations and voices. Rates anxiety and depression 2/10. Has been out on unit this shift. Eats meals in lounge area. Takes meds without incident. Completed ADLS. Eye contact good with this health technical writer and contracts for safety. GOAL: Sleep better. 1730 In group at this time. 1815 In room in bed resting on left side with eyes closed at this time. 1914 Continues resting in bed on left side with eyes closed at this time. 2009 Sitting in lounge with other peers at this time. 2114 Ambulating in hallway at this time. 2147 Declined Lamictal 50mg and Trazadone 50mg at this time. Applied cream to area at this time. 2234 In room in bed resting on left side with eyes closed at this time. * Marge Morales, FRAME CLEANER - 05/03/2019 5:20 PM EDT 17:20 Recreation Therapy - Pt in the TV lounge upon approach and he was receptive to joining group.Pt engaged in a familiar leisure outlet Outburst. Pt exhibited good recall and completed game play without difficulty. Pt quiet but controlled and appropriate. The importance of healthy leisure involvement and leisure benefits were discussed. Pt did well with task but provided little input into group discussions. * Divina Michel CTRS - 05/03/2019 1:30 PM EDT Pt was offered Spirituality Group, led by Tien Andres from [facility], pt declined * Davin Eddy MD - 05/03/2019 1:29 PM EDT Psychiatry Progress Note Patient Name: Ivan Renae Admit Date: [id number] MR #: [id number] : 1985 Perpetual Assessment Ivan Renae is a 34 y.o. male was seen individually Case discussed with nursing staff medical records were reviewed. Nursing staff had reported that patient was visited by his mother last evening and was involved in an argument and stated that the visit did not go well as mother has been asking the same questions again and again. During evaluation patient stated that he is somewhat angry and frustrated with his situation and claimed that million things and annoying in my life . Patient stated that he had been feeling lonely at home was getting bored and was going out for hiking and fishing by himself and would not communicate with anyone while outside. 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 Patient reported that while at [facility] and had since he had anxiety and anorexia problem. He was breathing heavily did not go to the classes was getting paranoid and had been treated with Paxil and some other medications. Patient reported that he had been hospitalized since 2017 at [facility] for 4 times, [facility] twice and [facility] twice. Current his ninth psychiatric hospitalization since 2017. Patient had used Latuda and Lamictal doses claiming that he was concerned about the adverse effect from the same. He was explained once again in detail of the role of the prescribed medication known indication adverse effect contraindication and alternatives. Patient has subsequently agreed to takewith the medication. Patient had complained of sleep disturbance last night and is prescribed Desyrel for the same. Diagnosis & Plan/Recommendations Following for Interval History: Review of Systems: Eyes:No diplopia ENT:No sinus drainage CV:No chest pain. No ankle swelling Resp:No dyspnea. No wheezing GI:No abdominal pain.No abdominal distention :No dysuria Neuro:No headache Integumentary:No skin rash MuscSkel:No arthralgias Endo:No polyuria Heme/lymphatic:No apparent lymphadenopathy Allergic/Immunologic:No hives Physical Examination: Vital Signs: BP 124/86 (BP Location: Left arm, Patient Position: Sitting) Pulse 82 Temp 97.4 F (36.3 C) (Oral) Resp 14 Ht 5' 9 Wt 90.7 kg (200 lb) SpO2 97% BMI 29.53 kg/m Mental Status Evaluation: General Appearance & Behavior: age appropiate Grooming & Hygiene: street clothes Psychomotor Activity: psychomotor agitation Gait & Station stable gait and ability to rise from bed/chair without assistance Speech: soft spoken and mumbled Flow of Thought: disorganized and thought blocking Thought Associations: Loose Content of Thought: homicidal ideation Mood: stressed out Affect: angry and labile Insight: limited Judgment: fair Orientation: alert and oriented to person, place, time, and circumstances Memory: intact recent and remote Attention: adequate Concentration: intact Language: fluent Fund of Knowledge: estimated average intelligence Laboratory and Additional Data Reviewed: Medications 05/03/19 1:39 PM Treatment options and alternatives reviewed with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 bilaterally and EOMI . Intact Ears - normal external appearance, hearing .normal Nose - normal, no erythema. Throat - mucous membranes moist, pharynx without lesions. Neck: Supple, trachea midline. Cardiovascular: S1, S2 normal. No murmurs, rubs, clicks or gallops appreciated. Edema. no Respiratory: Lungs clear to auscultation, no wheezes, rales or rhonchi heard. Abdomen: Soft, non-tender, normal bowel sounds, non-distended, no masses or organomegaly appreciated.Constipation no dysuria, trouble voiding or hematuria negative Neurological: Grossly normal motor and sensory exam. No focal deficits ..Cranial Nerves II through VIII (General assessement of vision, eye movement, chewing, facial expression, and hearing): Grossly intact Musculoskeletal: No joint tenderness, deformity or swelling. Skin: Normal coloration and turgor. No rashes.Dry cracked skin over left ear. Psych: Alert, oriented x 3. Mood: slow to respond, reacting to internal stimuli Laboratory and Additional Data Reviewed: Reviewed 05/03/19 4:16 PM: No results found for this or any previous visit (from the past 24 hour(s)). CULTURES: Reviewed 05/03/19 4:16 PM Radiology/Imaging: Reviewed 05/03/19 4:16 PM No results found. @MRICT(48h)@ documented in this encounter Neelam Dolan RN - 07/03/2019 9:18 PM India Walden - 07/03/2019 9:02 PM Neelam Hillman RN - 07/03/2019 8:50 PM Neelam Hillman RN - 07/03/2019 8:15 PM EDT ED Notes (unrecognized secti on and content) REPORT CALLED TO [facility]USA MAXWELL. PT GOING TO ROOM 3309. PT AMBULATORY TO RESTROOM PT LAYING IN BED. MOTHER WENT HOME WHEN SHE FOUND OUT PT GETTING ADMITTED. WAITING FOR BED AT THIS TIME. PLAN TO ADMIT. PT AMBULATORY TO RESTOOM PT AMBULATORY TO RESTROOM REPORT RECEIVED FROM MUSA PULLIAM. IN REPORT TOLD PT HAS BEEN HEARING VOICES AND TIRED OF HEARING THEM. HAVING THOUGHTS TO KILL SELF. FLAT AFFECT LAKESHA CART SIDE ED PROVIDER NOTE [facility] NAME: Ivan Renae AGE: 34 y.o. : 1985 VISIT DATE: 07/03/2019 CSN: [id number] PCP: Physician No Chief Complaint Patient presents with Suicidal pt states he has had SI for a few years, denies any triggers to make him feel worse Patient with a history of schizophrenia presents to the emergency department for complaint of suicidal thoughts. Patient lives with his parents. States that he wants to hang himself and also often has thoughts of killing his parents. Patient admits to hearing voices. States that he has been off of his medication for 1 week. Patient does not give me any more details. Denies all physical medical complaints. Denies any other past medical history. Denies all other symptoms at this time. Past Medical History: Diagnosis Date Anxiety Hypertension Schizophrenia (HCC) History reviewed. No pertinent surgical history. Family History Problem Relation Age of Onset Depression Mother Cancer Father Alcohol abuse Father Depression Father Cancer Paternal Grandfather Social History Socioeconomic History Marital status: Single Spouse name: Not on file Number of children: Not on file Years of education: Not on file Highest education level: Not on file Occupational History Not on file Social Needs Financial resource strain: Not on file Food insecurity: Worry: Not on file Inability: Not on file Transportation needs: Medical: Not on file Non-medical: Not on file Tobacco Use Smoking status: Never Smoker Smokeless tobacco: Never Used Substance and Sexual Activity Alcohol use: Never Frequency: Never Drug use: Never Sexual activity: Not on file Lifestyle Physical activity: Days per week: Not on file Minutes per session: Not on file Stress: Not on file Relationships Social connections: Talks on phone: Not on file Gets together: Not on file Attends taoist service: Not on file Active member of club or organization: Not on file Attends meetings of clubs or organizations: Not on file Relationship status: Not on file Other Topics Concern Not on file Social History Narrative Not on file Previous Medications Medication Sig lamoTRIgine (LAMICTAL) 25 MG tablet Take 2 (two) tablets (50 mg total) by mouth 2 (two) times a day . lurasidone (LATUDA) 60 mg Tab Take 1 (one) tablet (60 mg total) by mouth daily with breakfast Start: 05/18/19. propranolol (INDERAL) 10 MG tablet Take 3 (three) tablets (30 mg total) by mouth daily with breakfast Start: 05/18/19. traZODone (DESYREL) 100 MG tablet Take 1 (one) tablet (100 mg total) by mouth nightly . trihexyphenidyl (ARTANE) 5 MG tablet Take 1 (one) tablet (5 mg total) by mouth daily Start: 05/18/19. No Known Allergies Review of Systems Constitutional: Negative for activity change, chills, fatigue and fever. HENT: Negative for congestion, ear pain, hearing loss, postnasal drip, rhinorrhea, sore throat and trouble swallowing. Eyes: Negative for photophobia, pain, redness and visual disturbance. Respiratory: Negative for cough, chest tightness, shortness of breath and wheezing. Cardiovascular: Negative for chest pain, palpitations and leg swelling. Gastrointestinal: Negative for abdominal pain, constipation, diarrhea, nausea and vomiting. Genitourinary: Negative for difficulty urinating, dysuria, hematuria and urgency. Musculoskeletal: Negative for arthralgias, back pain, myalgias, neck pain and neck stiffness. Skin: Negative for color change and rash. Neurological: Negative for dizziness, speech difficulty, weakness, numbness and headaches. Psychiatric/Behavioral: Positive for hallucinations and suicidal ideas. Negative for agitation. The patient is not nervous/anxious. Patient Vitals for the past 24 hrs: BP Temp Temp src Pulse Resp SpO2 Height Weight 07/03/19 1744 116/76 98.7 F (37.1 C) Oral 64 16 96 % 5' 9 90.7 kg (200 lb) Physical Exam Constitutional: He is oriented to person, place, and time. He appears well- developed and well-nourished. HENT: Head: Normocephalic and atraumatic. Mouth/Throat: Oropharynx is clear and moist. Eyes: Conjunctivae and EOM are normal. Pupils are equal, round, and reactive to light. Neck: Normal range of motion. Neck supple. Cardiovascular: Normal rate, regular rhythm, normal heart sounds and intact distal pulses. Pulmonary/Chest: Effort normal and breath sounds normal. Abdominal: Soft. Bowel sounds are normal. He exhibits no distension. There is no tenderness. Musculoskeletal: Normal range of motion. He exhibits no edema or tenderness. Neurological: He is alert and oriented to person, place, and time. Skin: Skin is warm and dry. Capillary refill takes less than 2 seconds. No rash noted. Psychiatric: He has a normal mood and affect. Nursing note and vitals reviewed. Laboratory & Radiographic Imaging (if done): Results for orders placed or performed during the hospital encounter of 07/03/19 Alcohol, Medical Result Value Ref Range Alcohol (Medical) <10.00 <10.00 mg/dL Urine Drug Screen Result Value Ref Range Amphetamine Screen, Urine None Detected None Detected Barbiturate Screen, Urine None Detected None Detected Benzodiazepine Screen, Urine None Detected None Detected Cannabinoid Screen, Urine None Detected None Detected Cocaine, Screen Urine None Detected None Detected Methadone Screen, Urine None Detected None Detected Opiate Screen, Urine None Detected None Detected Oxycodone Screen, Urine None Detected None Detected Lavender Top Result Value Ref Range Extra Tube Hold for add-ons. Mint Green Top Result Value Ref Range Extra Tube Hold for add-ons. Gold Top Result Value Ref Range Extra Tube Hold for add-ons. Light Blue Top Result Value Ref Range Extra Tube Hold for add-ons. No orders to display Procedures MDM Number of Diagnoses or Management Options Diagnosis management comments: Patient was medically cleared and evaluated by social work. He will be admitted to Dr. Eddy for further evaluation and treatment. Amount and/or Complexity of Data Reviewed Clinical lab tests: ordered and reviewed Risk of Complications, Morbidity, and/or Mortality Presenting problems: moderate Diagnostic procedures: moderate Management options: moderate Patient Progress Patient progress: stable . . Clinical Impression: SNOMED CT(R) 1. Schizophrenia, unspecified type (HCC) SCHIZOPHRENIA ED Disposition ED Disposition Condition Comment Hospitalize Phone call required?: No Follow-up Information Follow-up information has not been specified. Contact information for after-discharge care Follow-up information has not been specified. Floyd Grullon PA-C 07/03/19 2016 [facility] OF LABS AND URINE THAT WAS JUST SENT MEAL TRAY DELIVERED FLOYD CART SIDE Pt states he was taking a walk today and began having thoughts of self harm. states he has been feeling this way for years. states he was seen Last week for same thing and taken off schizophrenia meds because they weren't working . States he has been hearing voices for several years. states he is tired of hearing them and of feeling like hurting himself. A&Ox3. No distress noted. documented in this encounter Plan of Care - Rae Hinojosa RN - 07/11/2019 5:52 PM EDTPlan of Care - Jacki Whipple RN - 07/11/2019 9:55 AM EDTAssessment & Plan Note - Talya Ernandez CNP - 07/10/2019 9:30 PM EDT Miscellaneous Notes (unrecog nized section and content) Problem: Health Maintenance - Impaired Goal: Able to perform ADL Outcome: Met Problem: Suicide - Risk of Goal: Able to control suicidal impulse Outcome: Met Goal: Absence of self-harm Outcome: Met Goal: Decrease in suicidal ideation Outcome: Met Problem: Health Maintenance - Impaired Goal: Able to perform ADL Outcome: Met Goal: Adequate nutritional intake Outcome: Met Problem: Pain Goal: Manage acute pain Outcome: Met Goal: Manage chronic pain Outcome: Met Goal: Reduced pain sensation Outcome: Met Goal: Achievement of comfort function goal Outcome: Met Problem: Health Maintenance - Impaired Goal: Improved sleep pattern Outcome: Not Met Problem: Mood - Altered Goal: Improved mood stability Outcome: Partially Met Problem: Thought Process - Altered Goal: Improved thought processes Outcome: Partially Met Problem: Cognitive-Perceptual Pattern - Impaired Goal: Improved environmental perceptions Outcome: Partially Met Problem: Coping- Ineffective Goal: Effective coping Outcome: Partially Met Problem: Health Maintenance - Impaired Goal: Knowledge of disease process Outcome: Partially Met Problem: Mood - Altered Goal: Appropriate social interaction Outcome: Partially Met Problem: Plan for Discharge Goal: Knowledge of discharge plan and instructions Outcome: Partially Met Goal: Knowledge of medication management Outcome: Partially Met Goal: Knowledge of need for follow-up care Outcome: Partially Met Care plan updated: Problem: Health Maintenance - Impaired Goal: Able to perform ADL Outcome: Met Problem: Suicide - Risk of Goal: Able to control suicidal impulse Outcome: Met Goal: Absence of self-harm Outcome: Met Goal: Decrease in suicidal ideation Outcome: Met Problem: Health Maintenance - Impaired Goal: Able to perform ADL Outcome: Met Goal: Improved sleep pattern Outcome: Met Goal: Adequate nutritional intake Outcome: Met Problem: Plan for Discharge Goal: Knowledge of medication management Outcome: Met Problem: Pain Goal: Manage acute pain Outcome: Met Goal: Manage chronic pain Outcome: Met Goal: Achievement of comfort function goal Outcome: Met Problem: Mood - Altered Goal: Improved mood stability Outcome: Partially Met Problem: Thought Process - Altered Goal: Improved thought processes Outcome: Partially Met Problem: Cognitive-Perceptual Pattern - Impaired Goal: Improved environmental perceptions Outcome: Partially Met Problem: Health Maintenance - Impaired Goal: Knowledge of disease process Outcome: Partially Met Problem: Mood - Altered Goal: Appropriate social interaction Outcome: Partially Met Problem: Plan for Discharge Goal: Knowledge of discharge plan and instructions Outcome: Not Addressed Goal: Knowledge of need for follow-up care Outcome: Not Addressed Problem: Pain Goal: Reduced pain sensation Outcome: Not Addressed Associated Problem(s): Schizophrenia (HCC) Per attending psychiatrist Associated Problem(s): Hypertension Monitor BP shift. Continue Inderal 30 mg tab daily Problem: Health Maintenance - Impaired Goal: Able to perform ADL Outcome: Met Problem: Suicide - Risk of Goal: Absence of self-harm Outcome: Met Problem: Health Maintenance - Impaired Goal: Able to perform ADL Outcome: Met Problem: Mood - Altered Goal: Improved mood stability Outcome: Partially Met Problem: Thought Process - Altered Goal: Improved thought processes Outcome: Partially Met Problem: Suicide - Risk of Goal: Able to control suicidal impulse Outcome: Partially Met Goal: Decrease in suicidal ideation Outcome: Partially Met Problem: Cognitive-Perceptual Pattern - Impaired Goal: Improved environmental perceptions Outcome: Partially Met Problem: Coping- Ineffective Goal: Effective coping Outcome: Partially Met Problem: Health Maintenance - Impaired Goal: Knowledge of disease process Outcome: Partially Met Goal: Improved sleep pattern Outcome: Partially Met Goal: Adequate nutritional intake Outcome: Partially Met Problem: Mood - Altered Goal: Appropriate social interaction Outcome: Partially Met Problem: Plan for Discharge Goal: Knowledge of medication management Outcome: Partially Met Goal: Knowledge of need for follow-up care Outcome: Partially Met Problem: Pain Goal: Manage acute pain Outcome: Partially Met Goal: Manage chronic pain Outcome: Partially Met Goal: Reduced pain sensation Outcome: Partially Met Goal: Achievement of comfort function goal Outcome: Partially Met Problem: Plan for Discharge Goal: Knowledge of discharge plan and instructions Outcome: Not Addressed Problem: Health Maintenance - Impaired Goal: Able to perform ADL Outcome: Partially Met Problem: Mood - Altered Goal: Improved mood stability Outcome: Partially Met Problem: Thought Process - Altered Goal: Improved thought processes Outcome: Partially Met Problem: Suicide - Risk of Goal: Able to control suicidal impulse Outcome: Partially Met Goal: Absence of self-harm Outcome: Partially Met Problem: Cognitive-Perceptual Pattern - Impaired Goal: Improved environmental perceptions Outcome: Partially Met Problem: Coping- Ineffective Goal: Effective coping Outcome: Partially Met Problem: Health Maintenance - Impaired Goal: Knowledge of disease process Outcome: Partially Met Goal: Able to perform ADL Outcome: Partially Met Goal: Improved sleep pattern Outcome: Not Met Goal: Adequate nutritional intake Outcome: Partially Met Problem: Mood - Altered Goal: Appropriate social interaction Outcome: Partially Met Problem: Plan for Discharge Goal: Knowledge of discharge plan and instructions Outcome: Partially Met Goal: Knowledge of medication management Outcome: Partially Met Goal: Knowledge of need for follow-up care Outcome: Partially Met Problem: Pain Goal: Manage acute pain Outcome: Met Goal: Manage chronic pain Outcome: Met Goal: Reduced pain sensation Outcome: Met Problem: Health Maintenance - Impaired Goal: Able to perform ADL Outcome: Met Problem: Suicide - Risk of Goal: Able to control suicidal impulse Outcome: Met Goal: Absence of self-harm Outcome: Met Goal: Decrease in suicidal ideation Outcome: Met Problem: Health Maintenance - Impaired Goal: Able to perform ADL Outcome: Met Goal: Adequate nutritional intake Outcome: Met Problem: Pain Goal: Manage chronic pain Outcome: Met Goal: Reduced pain sensation Outcome: Met Problem: Mood - Altered Goal: Improved mood stability Outcome: Partially Met Problem: Thought Process - Altered Goal: Improved thought processes Outcome: Partially Met Problem: Cognitive-Perceptual Pattern - Impaired Goal: Improved environmental perceptions Outcome: Partially Met Problem: Coping- Ineffective Goal: Effective coping Outcome: Partially Met Problem: Health Maintenance - Impaired Goal: Knowledge of disease process Outcome: Partially Met Goal: Improved sleep pattern Outcome: Partially Met Problem: Mood - Altered Goal: Appropriate social interaction Outcome: Partially Met Problem: Plan for Discharge Goal: Knowledge of medication management Outcome: Partially Met Goal: Knowledge of need for follow-up care Outcome: Partially Met Problem: Pain Goal: Manage acute pain Outcome: Partially Met Goal: Achievement of comfort function goal Outcome: Partially Met Problem: Plan for Discharge Goal: Knowledge of discharge plan and instructions Outcome: Not Addressed Problem: Health Maintenance - Impaired Goal: Able to perform ADL Outcome: Partially Met Problem: Mood - Altered Goal: Improved mood stability Outcome: Partially Met Problem: Thought Process - Altered Goal: Improved thought processes Outcome: Partially Met Problem: Suicide - Risk of Goal: Able to control suicidal impulse Outcome: Partially Met Goal: Absence of self-harm Outcome: Partially Met Goal: Decrease in suicidal ideation Outcome: Partially Met Problem: Cognitive-Perceptual Pattern - Impaired Goal: Improved environmental perceptions Outcome: Partially Met Problem: Coping- Ineffective Goal: Effective coping Outcome: Partially Met Problem: Health Maintenance - Impaired Goal: Knowledge of disease process Outcome: Partially Met Goal: Able to perform ADL Outcome: Partially Met Goal: Improved sleep pattern Outcome: Partially Met Goal: Adequate nutritional intake Outcome: Partially Met Problem: Mood - Altered Goal: Appropriate social interaction Outcome: Partially Met Problem: Plan for Discharge Goal: Knowledge of discharge plan and instructions Outcome: Partially Met Goal: Knowledge of medication management Outcome: Partially Met Goal: Knowledge of need for follow-up care Outcome: Partially Met Problem: Pain Goal: Manage acute pain Outcome: Partially Met Goal: Manage chronic pain Outcome: Partially Met Goal: Reduced pain sensation Outcome: Partially Met Goal: Achievement of comfort function goal Outcome: Partially Met Problem: Health Maintenance - Impaired Goal: Able to perform ADL Outcome: Met Problem: Mood - Altered Goal: Improved mood stability Outcome: Partially Met Problem: Thought Process - Altered Goal: Improved thought processes Outcome: Partially Met Problem: Suicide - Risk of Goal: Able to control suicidal impulse Outcome: Met Goal: Absence of self-harm Outcome: Met Goal: Decrease in suicidal ideation Outcome: Met Problem: Cognitive-Perceptual Pattern - Impaired Goal: Improved environmental perceptions Outcome: Partially Met Problem: Coping- Ineffective Goal: Effective coping Outcome: Partially Met Problem: Health Maintenance - Impaired Goal: Knowledge of disease process Outcome: Partially Met Goal: Able to perform ADL Outcome: Met Goal: Improved sleep pattern Outcome: Partially Met Goal: Adequate nutritional intake Outcome: Met Problem: Plan for Discharge Goal: Knowledge of discharge plan and instructions Outcome: Not Addressed Goal: Knowledge of medication management Outcome: Not Addressed Goal: Knowledge of need for follow-up care Outcome: Not Addressed Behavioral Health Treatment Plan Update Date: 07/08/2019 Time: 3:42 PM Patient Name: Ivan Renae Date of : 1985 Sex: Male Patient Active Problem List Diagnosis SNOMED CT(R) Date Noted Slow transit constipation SLOW TRANSIT CONSTIPATION 05/03/2019 Dermatitis of external ear DERMATITIS OF EXTERNAL EAR 05/03/2019 Anxiety ANXIETY 05/03/2019 Schizophrenia (HCC) SCHIZOPHRENIA 05/01/2019 Diagnosis Conklin I: See current hospital problem list Conklin II: Deferred Conklin III: Patient Active Problem List Diagnosis SNOMED CT(R) Date Noted Slow transit constipation SLOW TRANSIT CONSTIPATION 05/03/2019 Dermatitis of external ear DERMATITIS OF EXTERNAL EAR 05/03/2019 Anxiety ANXIETY 05/03/2019 Schizophrenia (HCC) SCHIZOPHRENIA 05/01/2019 Conklin IV: other psychosocial or environmental problems Conklin V: 31-40 impairment in reality testing Expected Discharge Date: ELOS: 3-5 days Precautions Precautions: Suicide Patient Presenting Issues: Patient's Primary Presenting Issue Patient's Primary Presenting Issue: Homicidal Suicidal Symptoms: Ideation Suicidal Goals: Free from suicidal thoughts Days To Improvement Of Goal: 5-7 Suicidal Treatment Interventions: Medication management/evaluation, Group psychoeduction, Handouts psychoeducation, Individual psychoeducation Homicidal Symptoms: Ideation Homicidal Goals: Free from homicidal thoughts Days To Improvement Of Goal: 5-7 Homicidal Treatment Interventions: Medication education, Handouts psychoeducation, Individual psychoeducation Status Of Goal: Unchanged Patient's Secondary Presenting Issue Patient's Secondary Presenting Issue: Psychosis Psychosis Symptoms: Auditory hallucinations Psychosis Treatment Goals: Control psychosis Days To Improvement Of Goal: 5-7 Psychosis Interventions: Medication management/evaluation, Individual psychoeducation, Group psychoeduction, Medication education, Handouts psychoeducation Status Of Goal: Unchanged Precautions Precautions: Suicide Seclusion/Restraint Date:n/a Interventions to reduce Seclusion/Restraint: n/a Patient Strengths Patient Strengths: Basic self-care skills Patient Limitations Patient Limitations: Lack of financial means, Lack of stable employment, Low self esteem Discharge Needs Anticipated Facility Type: Psychiatric aftercare Criteria For Discharge Criteria For Discharge: Maximum benefit obtained Additional Comments: Patient remains on unit making gradual, steady progress. He is compliant with meds and group therapies with appropriate albeit superficial interactions. He continues to experience troubling thoughts and depressed mood. Recent med change will hopefully improve sleep and thought processes. Physician, Registered Nurse, Special Officer Automat, Adjunct Therapist included in treatment team discussion. Treatment team members present Norah Lazo LISW-S, Andrea, RN Patient Signature Date Patient's Response To Treatment Plan: Special Officer Automat Signature Date Problem: Health Maintenance - Impaired Goal: Able to perform ADL Outcome: Met Problem: Suicide - Risk of Goal: Able to control suicidal impulse Outcome: Met Goal: Absence of self-harm Outcome: Met Goal: Decrease in suicidal ideation Outcome: Met Problem: Health Maintenance - Impaired Goal: Able to perform ADL Outcome: Met Goal: Adequate nutritional intake Outcome: Met Problem: Mood - Altered Goal: Improved mood stability Outcome: Partially Met Problem: Thought Process - Altered Goal: Improved thought processes Outcome: Partially Met Problem: Cognitive-Perceptual Pattern - Impaired Goal: Improved environmental perceptions Outcome: Partially Met Problem: Coping- Ineffective Goal: Effective coping Outcome: Partially Met Problem: Health Maintenance - Impaired Goal: Knowledge of disease process Outcome: Partially Met Goal: Improved sleep pattern Outcome: Partially Met Problem: Mood - Altered Goal: Appropriate social interaction Outcome: Partially Met Problem: Plan for Discharge Goal: Knowledge of discharge plan and instructions Outcome: Not Addressed Goal: Knowledge of medication management Outcome: Not Addressed Goal: Knowledge of need for follow-up care Outcome: Not Addressed Problem: Health Maintenance - Impaired Goal: Able to perform ADL Outcome: Met Problem: Suicide - Risk of Goal: Able to control suicidal impulse Outcome: Met Goal: Absence of self-harm Outcome: Met Problem: Health Maintenance - Impaired Goal: Able to perform ADL Outcome: Met Goal: Adequate nutritional intake Outcome: Met Problem: Pain Goal: Manage acute pain Outcome: Met Problem: Mood - Altered Goal: Improved mood stability Outcome: Partially Met Problem: Thought Process - Altered Goal: Improved thought processes Outcome: Partially Met Problem: Suicide - Risk of Goal: Decrease in suicidal ideation Outcome: Partially Met Problem: Cognitive-Perceptual Pattern - Impaired Goal: Improved environmental perceptions Outcome: Partially Met Problem: Coping- Ineffective Goal: Effective coping Outcome: Partially Met Problem: Health Maintenance - Impaired Goal: Knowledge of disease process Outcome: Partially Met Goal: Improved sleep pattern Outcome: Partially Met Problem: Mood - Altered Goal: Appropriate social interaction Outcome: Partially Met Problem: Plan for Discharge Goal: Knowledge of discharge plan and instructions Outcome: Partially Met Goal: Knowledge of medication management Outcome: Partially Met Goal: Knowledge of need for follow-up care Outcome: Partially Met Problem: Pain Goal: Manage chronic pain Outcome: Partially Met Goal: Reduced pain sensation Outcome: Partially Met Goal: Achievement of comfort function goal Outcome: Partially Met Care plan updated: Problem: Health Maintenance - Impaired Goal: Able to perform ADL Outcome: Met Problem: Suicide - Risk of Goal: Able to control suicidal impulse Outcome: Met Goal: Absence of self-harm Outcome: Met Goal: Decrease in suicidal ideation Outcome: Met Problem: Health Maintenance - Impaired Goal: Able to perform ADL Outcome: Met Goal: Improved sleep pattern Outcome: Met Goal: Adequate nutritional intake Outcome: Met Problem: Pain Goal: Manage acute pain Outcome: Met Goal: Manage chronic pain Outcome: Met Goal: Achievement of comfort function goal Outcome: Met Problem: Mood - Altered Goal: Improved mood stability Outcome: Not Met Problem: Thought Process - Altered Goal: Improved thought processes Outcome: Not Met Problem: Health Maintenance - Impaired Goal: Knowledge of disease process Outcome: Not Met Problem: Mood - Altered Goal: Appropriate social interaction Outcome: Not Met Problem: Cognitive-Perceptual Pattern - Impaired Goal: Improved environmental perceptions Outcome: Partially Met Problem: Coping- Ineffective Goal: Effective coping Outcome: Partially Met Problem: Plan for Discharge Goal: Knowledge of discharge plan and instructions Outcome: Not Addressed Goal: Knowledge of medication management Outcome: Not Addressed Goal: Knowledge of need for follow-up care Outcome: Not Addressed Problem: Pain Goal: Reduced pain sensation Outcome: Not Addressed Problem: Health Maintenance - Impaired Goal: Able to perform ADL Outcome: Met Problem: Suicide - Risk of Goal: Able to control suicidal impulse Outcome: Met Goal: Absence of self-harm Outcome: Met Problem: Health Maintenance - Impaired Goal: Able to perform ADL Outcome: Met Problem: Mood - Altered Goal: Improved mood stability Outcome: Partially Met Problem: Thought Process - Altered Goal: Improved thought processes Outcome: Partially Met Problem: Suicide - Risk of Goal: Decrease in suicidal ideation Outcome: Partially Met Problem: Cognitive-Perceptual Pattern - Impaired Goal: Improved environmental perceptions Outcome: Partially Met Problem: Coping- Ineffective Goal: Effective coping Outcome: Partially Met Problem: Health Maintenance - Impaired Goal: Knowledge of disease process Outcome: Partially Met Goal: Improved sleep pattern Outcome: Partially Met Goal: Adequate nutritional intake Outcome: Partially Met Problem: Mood - Altered Goal: Appropriate social interaction Outcome: Partially Met Problem: Plan for Discharge Goal: Knowledge of discharge plan and instructions Outcome: Partially Met Goal: Knowledge of medication management Outcome: Partially Met Goal: Knowledge of need for follow-up care Outcome: Partially Met Care plan updated: Problem: Health Maintenance - Impaired Goal: Able to perform ADL Outcome: Met Problem: Suicide - Risk of Goal: Able to control suicidal impulse Outcome: Met Goal: Absence of self-harm Outcome: Met Goal: Decrease in suicidal ideation Outcome: Met Problem: Coping- Ineffective Goal: Effective coping Outcome: Met Problem: Health Maintenance - Impaired Goal: Able to perform ADL Outcome: Met Goal: Improved sleep pattern Outcome: Met Goal: Adequate nutritional intake Outcome: Met Problem: Mood - Altered Goal: Appropriate social interaction Outcome: Met Problem: Plan for Discharge Goal: Knowledge of medication management Outcome: Met Problem: Cognitive-Perceptual Pattern - Impaired Goal: Improved environmental perceptions Outcome: Not Met Problem: Health Maintenance - Impaired Goal: Knowledge of disease process Outcome: Not Met Problem: Mood - Altered Goal: Improved mood stability Outcome: Partially Met Problem: Thought Process - Altered Goal: Improved thought processes Outcome: Partially Met Problem: Plan for Discharge Goal: Knowledge of discharge plan and instructions Outcome: Not Addressed Goal: Knowledge of need for follow-up care Outcome: Not Addressed Problem: Health Maintenance - Impaired Goal: Able to perform ADL Outcome: Met Problem: Mood - Altered Goal: Improved mood stability Outcome: Partially Met Problem: Thought Process - Altered Goal: Improved thought processes Outcome: Partially Met Problem: Health Maintenance - Impaired Goal: Able to perform ADL Outcome: Partially Met Problem: Mood - Altered Goal: Improved mood stability Outcome: Not Met Problem: Thought Process - Altered Goal: Improved thought processes Outcome: Not Met Behavioral Health Initial Treatment Plan Date: 07/04/2019 Time: 8:49 PM Patient Name: Ivan Renae Date of : 1985 Sex: Male Admit Date/Time: 07/03/2019 5:30 PM Patient Active Problem List Diagnosis SNOMED CT(R) Date Noted Slow transit constipation SLOW TRANSIT CONSTIPATION 05/03/2019 Dermatitis of external ear DERMATITIS OF EXTERNAL EAR 05/03/2019 Anxiety ANXIETY 05/03/2019 Schizophrenia (HCC) SCHIZOPHRENIA 05/01/2019 Diagnosis Schizoaffective disorder Patient Active Problem List Diagnosis SNOMED CT(R) Date Noted Slow transit constipation SLOW TRANSIT CONSTIPATION 05/03/2019 Dermatitis of external ear DERMATITIS OF EXTERNAL EAR 05/03/2019 Anxiety ANXIETY 05/03/2019 Schizophrenia (HCC) SCHIZOPHRENIA 05/01/2019 Reason for Hospitalization Reason for Hospitalization: Depression, Psychosis, Hallucinations, Homicidal ideation, Suicidal ideation Expected Discharge Date: ELOS: 57 Precautions Precautions: Unpredictable Patient Presenting Issues: Patient's Primary Presenting Issue Patient's Primary Presenting Issue: Homicidal Suicidal Symptoms: Ideation Suicidal Goals: Free from suicidal thoughts Days To Improvement Of Goal: 5-7 Suicidal Treatment Interventions: Medication management/evaluation, Group psychoeduction, Handouts psychoeducation, Individual psychoeducation Homicidal Symptoms: Ideation Homicidal Goals: Free from homicidal thoughts Days To Improvement Of Goal: 5-7 Homicidal Treatment Interventions: Medication education, Handouts psychoeducation, Individual psychoeducation Status Of Goal: Unchanged Patient's Secondary Presenting Issue Patient's Secondary Presenting Issue: Psychosis Psychosis Symptoms: Auditory hallucinations Psychosis Treatment Goals: Control psychosis Days To Improvement Of Goal: 5-7 Psychosis Interventions: Medication management/evaluation, Individual psychoeducation, Group psychoeduction, Medication education, Handouts psychoeducation Status Of Goal: Unchanged Precautions Precautions: Unpredictable Seclusion/Restraint Date Interventions to reduce Seclusion/Restraint Patient Strengths Patient Strengths: Basic self-care skills Patient Limitations Patient Limitations: Lack of financial means, Lack of stable employment, Low self esteem Discharge Needs Anticipated Facility Type: Psychiatric aftercare Criteria For Discharge Criteria For Discharge: Maximum benefit obtained Additional Comments: Physician, Registered Nurse, Special Officer Automat, Adjunct Therapist included in treatment team discussion. Treatment team members present : Mariano Rainey LISW Patient Signature Date Patient's Response To Treatment Plan: Physician Signature Date Problem: Health Maintenance - Impaired Goal: Able to perform ADL Outcome: Not Met Problem: Thought Process - Altered Goal: Improved thought processes Outcome: Not Met Problem: Mood - Altered Goal: Improved mood stability Outcome: Partially Met BHT assessment complete, please refer to Adjunctive Therapy Flowsheet for further information. PT was seen in room at bed side to complete assessment. PT initially remained in bed and would not sit up to hold eye contact with this health technical writer, but as assessment progressed pt did sit up and hold eye contact for remainder of assessment. Affect flat, tense and guarded. PT spoke of being paranoid and having difficulty focusing at times. Pt is well spoken and educated, expressing self appropriately and detailed at times. PT indifferent as to SI and HI at this time, but able to cite that he does have intrusive thoughts. REASON FOR ADMISSION: PT shared that he was having increase in symptoms of negative thoughts, intrusive thoughts that I don't act on but that does not make them any less negative, stomach issues, decrease eating and increase in paranoia. PT shared I have been dealing with this for 3 years and nothing seems to be helping. I have been in here and other places recently and nothing is getting better. PT voiced that he did not speak to his doctor this date because does not have hope that he will be able to help pt. Pt did ask family to bring to the hospital for help but pt is paranoid that his family purposely triggers me when I try to engage them in conversation by clearing their throats and coughing . PT had difficulty accepting that this was his perception and not their intention. CHANGES/STRESSORS: Unable to stop intrusive thoughts and just out of O[facility]. COPING SKILLS: nothing helps or works TYPICAL DAY: Pt lives with his parents but has limited contact with them by choice. PT is currently not working and has a lot of free time on his hands. LEISURE INTERESTS: TV SUPPORTS: Pt has family, counselor and psychiatrist but feels that they are not able to provide help to him at this time. STRENGTHS: I've given 3 years of my life to get better, who does that. TX GOAL: PT uncertain of setting a measurable goal due to feeling no hope for self at this time. TX PLAN: Pt will be placed in Goal Group, Life Skills 1, Exercise, Recreation Therapy and Music appreciation to focus on positive coping skills, positive leisure skills, emotion management and healthy living ED Attestation: I did not see this patient. However, I was personally available for consult in the ED for this patient, if the Advanced Practice Provider (CARMEL) needed any assistance. The CARMEL evaluated the patient independently for a complaint of Suicidal (pt states he has had SI for a few years, denies any triggers to make him feel worse), and completed their own examination, documentation, and discharge. 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 Eddy Accepted for Admission: Yes Admitting Physician: Dr. Eddy Number For RN To RN Communication: [id number] Risk Factors Recent Psychological Experiences: None Current Suicidal Ideation: Yes Describe Current Suicidal Ideation : Pt suicidal every day with plan to hang self Previous Suicidal Ideation: Yes Describe Previous Suicidal Ideation: Pt reports suicidal ideations for 2 years Current Suicide Attempt: No Previous Suicide Attempt: No Current Self Harm Behavior: No Previous Self Harm Behavior: No Current Plans to Harm Another: Yes Describe Current Plans to Harm Another : Pt wants to kill his parents Previous Plans to Harm Another: Yes Describe Previous Plans to Harm Another : Pt has had homicidal thoughts in the past History of Attempts to Harm Another: No Access to Weapons: Yes Describe Access to Weapons: Guns are in a safe in the home Violent Episode: No Previous Violent Episode: Information not available Family History of Suicide: No Family History of Mental Illness: Yes Describe Family History of Mental Illness: Parents have depression Family History of Substance Abuse: No Elopement: No risk Methods to Calm Down: Quiet time in room, Talk with staff Restraint Risk Factors: None Patient (Pt) presents to the emergency department (ED) for suicidal and homicidal ideations. Pt states that he went for a walk today and was having negative thoughts. Pt reports that he had the thought to get a rope and hang himself from a tree in his front yard. Pt also has thoughts of wanting to kill his parents. Pt reports that he imagines taking a baseball bat and attacking them with it. Pt states he has had suicidal thoughts every day for 2 years and does not feel like they have gotten any better since the last time he was an inpatient. Pt reports that his main stressors are his intrusive thoughts, not being able to sleep, and auditory hallucinations. Pt states he hears voices daily but is not able to understand what they are telling him. Pt states that he hears noises at night that keep him awake and he reports that he currently hears ringing and ticking while speaking to this worker. Pt reports he is paranoid about everything but would not provide any examples of what he means by everything. Pt is flat in affect, is delayed when responding but is directable and cooperative. documented in this encounter Problem: Cognitive-Perceptual Pattern - Impaired Goal: Improved thought processes Outcome: Completed Goal: Improved environmental perceptions Outcome: Completed Problem: Coping - Ineffective, Family Goal: Effective coping Outcome: Completed Goal: Knowledge of problem-solving techniques Outcome: Completed Problem: Health Maintenance - Impaired Goal: Improved sleep pattern Outcome: Completed Problem: Social Interaction - Impaired Goal: Appropriate social interaction Outcome: Completed Goal: Participation in group activities Outcome: Completed Problem: Plan for Discharge Goal: Knowledge of discharge plan and instructions Outcome: Completed Goal: Knowledge of medication management Outcome: Completed Goal: Knowledge of need for follow-up care Outcome: Completed Problem: Pain Goal: Manage acute pain Outcome: Completed Goal: Manage chronic pain Outcome: Completed Goal: Reduced pain sensation Outcome: Completed Goal: Achievement of comfort function goal Outcome: Completed Problem: Cognitive-Perceptual Pattern - Impaired Goal: Improved thought processes Outcome: Partially Met Goal: Improved environmental perceptions Outcome: Partially Met Problem: Coping - Ineffective, Family Goal: Effective coping Outcome: Partially Met Goal: Knowledge of problem-solving techniques Outcome: Partially Met Problem: Health Maintenance - Impaired Goal: Improved sleep pattern Outcome: Partially Met Problem: Social Interaction - Impaired Goal: Appropriate social interaction Outcome: Partially Met Goal: Participation in group activities Outcome: Partially Met Problem: Plan for Discharge Goal: Knowledge of discharge plan and instructions Outcome: Partially Met Goal: Knowledge of medication management Outcome: Partially Met Goal: Knowledge of need for follow-up care Outcome: Partially Met Problem: Pain Goal: Manage chronic pain Outcome: Partially Met Goal: Reduced pain sensation Outcome: Partially Met Goal: Achievement of comfort function goal Outcome: Partially Met Problem: Cognitive-Perceptual Pattern - Impaired Goal: Improved thought processes Outcome: Partially Met Goal: Improved environmental perceptions Outcome: Partially Met Problem: Coping - Ineffective, Family Goal: Effective coping Outcome: Partially Met Goal: Knowledge of problem-solving techniques Outcome: Partially Met Problem: Health Maintenance - Impaired Goal: Improved sleep pattern Outcome: Partially Met Problem: Social Interaction - Impaired Goal: Appropriate social interaction Outcome: Partially Met Goal: Participation in group activities Outcome: Partially Met Problem: Plan for Discharge Goal: Knowledge of discharge plan and instructions Outcome: Partially Met Goal: Knowledge of medication management Outcome: Partially Met Goal: Knowledge of need for follow-up care Outcome: Partially Met Problem: Pain Goal: Manage acute pain Outcome: Not Addressed Goal: Manage chronic pain Outcome: Not Addressed Goal: Reduced pain sensation Outcome: Not Addressed Goal: Achievement of comfort function goal Outcome: Not Addressed Problem: Cognitive-Perceptual Pattern - Impaired Goal: Improved thought processes Outcome: Partially Met Goal: Improved environmental perceptions Outcome: Partially Met Problem: Coping - Ineffective, Family Goal: Effective coping Outcome: Partially Met Goal: Knowledge of problem-solving techniques Outcome: Partially Met Problem: Health Maintenance - Impaired Goal: Improved sleep pattern Outcome: Partially Met Problem: Social Interaction - Impaired Goal: Appropriate social interaction Outcome: Partially Met Goal: Participation in group activities Outcome: Partially Met Problem: Plan for Discharge Goal: Knowledge of discharge plan and instructions Outcome: Partially Met Goal: Knowledge of medication management Outcome: Partially Met Goal: Knowledge of need for follow-up care Outcome: Partially Met Problem: Cognitive-Perceptual Pattern - Impaired Goal: Improved thought processes Outcome: Partially Met Goal: Improved environmental perceptions Outcome: Partially Met Problem: Coping - Ineffective, Family Goal: Effective coping Outcome: Partially Met Goal: Knowledge of problem-solving techniques Outcome: Partially Met Problem: Health Maintenance - Impaired Goal: Improved sleep pattern Outcome: Partially Met Problem: Social Interaction - Impaired Goal: Appropriate social interaction Outcome: Partially Met Goal: Participation in group activities Outcome: Partially Met Problem: Plan for Discharge Goal: Knowledge of discharge plan and instructions Outcome: Partially Met Goal: Knowledge of medication management Outcome: Partially Met Goal: Knowledge of need for follow-up care Outcome: Partially Met Problem: Cognitive-Perceptual Pattern - Impaired Goal: Improved thought processes Outcome: Partially Met Goal: Improved environmental perceptions Outcome: Partially Met Problem: Coping - Ineffective, Family Goal: Effective coping Outcome: Partially Met Goal: Knowledge of problem-solving techniques Outcome: Partially Met Problem: Health Maintenance - Impaired Goal: Improved sleep pattern Outcome: Partially Met Problem: Social Interaction - Impaired Goal: Appropriate social interaction Outcome: Partially Met Goal: Participation in group activities Outcome: Partially Met Problem: Cognitive-Perceptual Pattern - Impaired Goal: Improved thought processes Outcome: Partially Met Goal: Improved environmental perceptions Outcome: Partially Met Problem: Coping - Ineffective, Family Goal: Effective coping Outcome: Partially Met Goal: Knowledge of problem-solving techniques Outcome: Partially Met Problem: Social Interaction - Impaired Goal: Appropriate social interaction Outcome: Partially Met Goal: Participation in group activities Outcome: Partially Met Problem: Plan for Discharge Goal: Knowledge of medication management Outcome: Partially Met Goal: Knowledge of need for follow-up care Outcome: Partially Met Problem: Health Maintenance - Impaired Goal: Improved sleep pattern Outcome: Not Addressed Problem: Plan for Discharge Goal: Knowledge of discharge plan and instructions Outcome: Not Addressed Problem: Health Maintenance - Impaired Goal: Improved sleep pattern Outcome: Not Addressed Problem: Plan for Discharge Goal: Knowledge of discharge plan and instructions Outcome: Not Addressed Problem: Cognitive-Perceptual Pattern - Impaired Goal: Improved thought processes Outcome: Partially Met Goal: Improved environmental perceptions Outcome: Partially Met Problem: Coping - Ineffective, Family Goal: Effective coping Outcome: Partially Met Goal: Knowledge of problem-solving techniques Outcome: Partially Met Problem: Health Maintenance - Impaired Goal: Improved sleep pattern Outcome: Partially Met Problem: Social Interaction - Impaired Goal: Appropriate social interaction Outcome: Partially Met Goal: Participation in group activities Outcome: Partially Met Problem: Social Interaction - Impaired Goal: Participation in group activities Outcome: Met Problem: Cognitive-Perceptual Pattern - Impaired Goal: Improved thought processes Outcome: Partially Met Goal: Improved environmental perceptions Outcome: Partially Met Problem: Coping - Ineffective, Family Goal: Effective coping Outcome: Partially Met Goal: Knowledge of problem-solving techniques Outcome: Partially Met Problem: Health Maintenance - Impaired Goal: Improved sleep pattern Outcome: Partially Met Problem: Social Interaction - Impaired Goal: Appropriate social interaction Outcome: Partially Met Problem: Plan for Discharge Goal: Knowledge of medication management Outcome: Partially Met Goal: Knowledge of need for follow-up care Outcome: Partially Met Problem: Plan for Discharge Goal: Knowledge of discharge plan and instructions Outcome: Not Addressed Behavioral Health Treatment Plan Update Date: 05/13/2019 Time: 2:22 PM Patient Name: Ivan Renae Date of : 1985 Sex: Male Patient Active Problem List Diagnosis SNOMED CT(R) Date Noted Slow transit constipation SLOW TRANSIT CONSTIPATION 05/03/2019 Dermatitis of external ear DERMATITIS OF EXTERNAL EAR 05/03/2019 Anxiety ANXIETY 05/03/2019 Schizophrenia (HCC) SCHIZOPHRENIA 05/01/2019 Diagnosis Conklin I: See current hospital problem list Conklin II: Deferred Conklin III: Patient Active Problem List Diagnosis SNOMED CT(R) Date Noted Slow transit constipation SLOW TRANSIT CONSTIPATION 05/03/2019 Dermatitis of external ear DERMATITIS OF EXTERNAL EAR 05/03/2019 Anxiety ANXIETY 05/03/2019 Schizophrenia (HCC) SCHIZOPHRENIA 05/01/2019 Conklin IV: occupational problems, other psychosocial or environmental problems and problems related to social environment Conklin V: 21-30 behavior considerably influenced by delusions or hallucinations OR serious impairment in judgment, communication OR inability to function in almost all areas Expected Discharge Date: ELOS: 3-5 days Precautions Precautions: None Patient Presenting Issues: Patient's Primary Presenting Issue Patient's Primary Presenting Issue: Aggressive behavior Aggressive Behavior Symptoms: Current Aggressive Behavior Treatment Goals: Improvement of presenting issues Days To Improvement Of Goal: (5-7) Aggressive Behavior Interventions: Medication management/evaluation, Group psychoeduction, Individual psychoeducation Status Of Goal: Improved Patient's Secondary Presenting Issue Patient's Secondary Presenting Issue: Homicidal Homicidal Symptoms: Attempted Homicidal Goals: Free from homicidal thoughts Days To Improvement Of Goal: (5-7) Homicidal Treatment Interventions: Medication management/evaluation, Medication education, Group psychoeduction, Pain and symptom management Status Of Goal: Unchanged Patient's Other Presenting Issue Patient's Other Presenting Issue: Mood instablilty Mood Instability Symptoms: Mood Swings Mood Instability Treatment Goals: Stabilize mood Days To Improvement Of Goal: (5-7) Mood Instability Interventions: Medication management/evaluation, Individual psychoeducation, Group psychoeduction, Medication education Status Of Goal: Unchanged Patient's Stated Issue Patient Stated Issue: Auditory hallucinations Patient Stated Issue Goals: Free from auditory hallucinations Patient Stated Issue Interventions: Medication education, Group psychoeduction, Individual psychoeducation, Handouts psychoeducation Status Of Goal: Unchanged Precautions Precautions: None Seclusion/Restraint Date: n/a Interventions to reduce Seclusion/Restraint: n/a Patient Strengths Patient Strengths: Intellectual abilities Patient Limitations Patient Limitations: Lack of financial means, Lack of stable employment, Lack of stable housing Discharge Needs Anticipated Facility Type: Psychiatric aftercare Criteria For Discharge Criteria For Discharge: Maximum benefit obtained Additional Comments: Patient remains guarded and superficial in interactions with others. He agreed to allow communication with his parents per Dr. Eddy's most recent interaction. Communication with parents will help to establish a baseline for patient's functioning. Patient is participating in groups on the unit; however, interactions with others are minimal. Physician, Registered Nurse, Special Officer Automat, Adjunct Therapist included in treatment team discussion. Treatment team members present: Norah Lazo (social sciences department chair). Patient Signature Date Patient's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
--- NOTE | 2023-12-02 08:17 | EX.ED.DYSGE1 ---
HPI History of Present Illness Chief Complaint: Mental Health Informant: patient Narrative Narrative: Patient presents with concerns about the right side of his throat. He states he has had something in the right side of his throat for about 8 years. It is always there. But recently the voice is cut it open and he wants to have it checked. He has no fevers or chills. No pain or difficulty swallowing. No shortness of breath. He states he always hears voices. He is schizophrenic. He is taking his meds. He states the voices are not mean. They are not telling him to hurt himself or others. They are not telling him to cut into the throat. He states the voices really are not bothering him. He hears voices more now than he used to 10 or 15 years ago. But he states he has learned to tolerate them much better. I have asked many times and he does not feel like he needs to come in the hospital for the voices. [facility]SH [facility] Medical History Back pain Fatigue Schizophrenia Home Medications naproxen 250 mg tablet 250 mg PO BID PRN Pain 10/24/20 [History Last Taken Unknown] qeodon 80 mg PO QHS 10/24/20 [History Last Taken Unknown] acetaminophen 500 mg tablet 500 mg PO Q6H PRN Pain 06/16/22 [History Last Taken Unknown] hydrocodone-acetaminophen 5-325mg 5mg-325mg 1 tab PO Q6H PRN pain 1 day #4 tabs 06/16/22 [Rx Last Taken Unknown] ziprasidone HCl 80 mg capsule (Geodon) 80 mg PO DAILY SCHIZOPHRENIA 06/22/23 [History Last Taken 06/21/23] Allergy/AdvReac Type Severity Reaction Status Date / Time No Known Allergies Allergy Verified 06/22/23 14:21 Family History Other Prostate cancer Social History Smoking Status: Former smoker alcohol intake: never ROS ROS ED Constitutional Constitutional ED: Denies chills, fever(s), subjective or sweats Eyes Eyes: Denies change in vision ENT ENT ED: Reports other Details: See history of present illness. He is actually not having any pain Cardiovascular Cardiovascular: Denies chest pain Respiratory/Chest Respiratory/Chest: Denies cough or dyspnea Gastrointestinal Gastrointestinal: Denies nausea or vomiting Musculoskeletal Musculoskeletal: Denies myalgias Integumentary Denies rash Neurologic Neurologic: Denies headache(s), paresthesias or weakness Psychiatric Psychiatric: Reports other Details: See history of present illness. ; Denies suicidal ideation or suicidal thoughts Hematologic/Lymphatic Hematologic/Lymphatic: Denies lymphadenopathy Allergic/Immunologic Allergic/Immunologic ED: Denies urticaria EXAM Physical Exam Narrative Exam Narrative: CONSTITUTIONAL: Patient is nontoxic in appearance. The patient looks comfortable. Work of breathing looks normal. HEENT: No notable trauma. Mucous membranes moist. No sinus tenderness. No indication of pain with swallowing. His tonsils are very small and he may have even had them removed. There is no exudate. There is no swelling there is no asymmetry. This exam is really very normal. EYES: No conjunctival injection. No proptosis. NECK:No JVD. No stridor. I feel no mass or fullness. There is no lymphadenopathy. Again this is a normal exam. Patient points kind of to the vallecula on the right as the area where he feels something was located. CARDIOVASCULAR: Regular rate. Regular rhythm. No notable murmur. No JVD. RESPIRATORY: No respiratory distress. Breathing is unlabored. No wheezes. GASTROINTESTINAL: Not distended. Bowel sounds are normal. No tenderness. GENITOURINARY: No tenderness over the bladder. No CVA tenderness. MUSCULOSKELETAL: Atraumatic. No tenderness. NEUROLOGICAL: Patient is alert and appropriate. No focal deficit noted. SKIN: No noted rashes. No diaphoresis. PSYCHIATRIC: Patient is calm. Mood is mildly flat. But patient is very appropriately dressed. He makes good eye contact. He admits to hearing the voices. But he states that they do not really bother him. He states he is learned to tolerate them. Const Vital Signs: 12/02/23 07:33 Temperature 96.3 F L Temperature Source Temporal Pulse Rate 75 Respiratory Rate 16 Blood Pressure 145/99 H Blood Pressure Mean 114 Pulse Ox 99 Oxygen Delivery Method Room Air MDM MDM MDM Narrative Medical decision making narrative: I had extensive discussion with this patient. I explained that we can certainly check for strep but I do not think that is the source of this. He has had symptoms for 8 years. I think follow-up with ENT for the throat would be appropriate. I then talked to him about his schizophrenia. I do have some concerns that he states the voices are just a little bit more clear in the last week. But he swears they are not bothering him. He does not feel he needs to come in the hospital. He states he has been admitted for them before but does not feel like he is in that position now. I explained that sometimes the voices starting like this is the beginning of an exacerbation. We would like to intervene before he has significant issues. We talked about contacting his counselor for a close follow-up appointment. I explained that we are open 24 hours a day. He if he has any concerns or thoughts of hurting himself or the voices get too much I strongly encouraged him to come in. But he does not want to be admitted now and he is taking care of himself. There is no sign that these voices are telling him to hurt himself or others. He does not want to hurt himself or others. I am not able to pink slip this patient. I do have concerns that this might be the beginning of an exacerbation and have tried to strongly encourage him to come back in. I did offer for him to stay to talk to her counselor who would be here in about an hour and a half. I explained we can get him some breakfast and let him rest. But he states he is really just here to make sure the throat is okay. Again, I have no way to force him to stay. We will let him go. I will give him referral to ENT as I think is reasonable somebody looks down there at least once to make sure there is nothing abnormal. It is unlikely to be pathologic as he has had symptoms for almost 8 years. Our discharge does not have any information for globus pharyngeus diagnosis. I have printed one off the Internet to give him. Discharge Plan Triage Chief Complaint: Mental Health Other Complaint: Sore Throat ED Provider: Norm Andrews Dx/Rx/DC Orders Clinical Impression: History of schizophrenia, Foreign body sensation, throat Prescriptions: No Action qeodon 80 mg PO QHS naproxen 250 mg tablet 250 mg PO BID PRN (Reason: Pain) acetaminophen 500 mg Tablet 500 mg PO Q6H PRN (Reason: Pain) hydrocodone-acetaminophen 5-325 mg tablet 1 tab PO Q6H PRN (Reason: pain) 1 Days Qty: 4 0RF ziprasidone HCl [Geodon] 80 mg capsule 80 mg PO DAILY Rx Instructions: give with food (meal/snack) Primary Care Provider: Care Physician,No Primary Referrals: Care Physician,No Primary [Primary Care Provider] - Jose Jerome MD [Med Staff - Courtesy Staff] - As soon as possible Disposition Disposition: Home, Self Care
== END 2023-12-02 08:33 | disposition home or self-care (01) ==
PROVIDERS: Emergency Provider Emergency Medicine; Visit Provider Emergency Medicine
DX: J02.9 Acute pharyngitis, unspecified (principal); F20.9 Schizophrenia, unspecified; Z87.891 Personal history of nicotine dependence; R09.A2 Foreign body sensation, throat; Z79.899 Other long term (current) drug therapy
CPT/HCPCS: 99283

== ENCOUNTER 2023-12-04 20:54 | Emergency (ER) | payer MEDICAID, SELFPAY ==
[2023-12-04 20:54] VITALS: BP 140/70; PULSE 78; RESP 14; O2SAT 99
[2023-12-04 20:55] VITALS: BP 156/102; PULSE 86; RESP 16; TEMP 36.6; O2SAT 98; BMI 28.9
--- NOTE | 2023-12-04 23:20 | EX.ED.VIS.PS ---
HPI HPI - Psych History of Present Illness Chief Complaint: Suicidal Informant: patient Narrative Narrative: Patient presents with hearing voices more. I saw this patient a couple days ago. He was very adamant that the voices were not bothering him although they were talking a little bit more. I had tried to get him to stay to talk to her counselor. I talked that his increased voices sometimes heralds an exacerbation of schizophrenia. But there is nothing that I could do to pink slip this patient. He did not meet criteria. I am happy that he has now come back. He is now hearing specific voices. They are telling him to hang himself. This is new. He is definitely getting worse. He will need stabilization and admission. PFSH PFS Medical History Back pain Fatigue Schizophrenia Home Medications brexpiprazole PO QHS 12/05/23 [History Last Taken 12/04/23 16:00] mirtazapine PO QHS 12/05/23 [History Last Taken 12/04/23 16:00] Allergy/AdvReac Type Severity Reaction Status Date / Time No Known Allergies Allergy Verified 06/22/23 14:21 Family History Other Prostate cancer Social History Smoking Status: Former smoker alcohol intake: never ROS ROS ED Constitutional Constitutional ED: Denies chills or fever(s) ENT ENT ED: Reports other Details: Patient does admit to the lump in his throat but states it does not hurt. ; Denies sore throat Cardiovascular Cardiovascular: Denies chest pain Respiratory/Chest Respiratory/Chest: Denies cough Gastrointestinal Gastrointestinal: Denies nausea or vomiting Musculoskeletal Musculoskeletal: Denies myalgias Integumentary Denies rash Neurologic Neurologic: Denies headache(s), paresthesias or weakness Psychiatric Psychiatric: Reports suicidal ideation and other Details: See history of present illness Endocrine Endocrinology: Denies polydipsia or polyuria Hematologic/Lymphatic Hematologic/Lymphatic: Denies easy bleeding or easy bruising Allergic/Immunologic Allergic/Immunologic ED: Denies urticaria EXAM Physical Exam Narrative Exam Narrative: CONSTITUTIONAL: Patient is nontoxic in appearance. He does look a little bit more paranoid and scared today HEENT: No notable trauma. Mucous membranes moist. Still no visible mass. Voice is normal. EYES: No conjunctival injection. No proptosis. NECK:No JVD. No stridor. No swelling. CARDIOVASCULAR: Regular rate. Regular rhythm. No notable murmur. No JVD. RESPIRATORY: No respiratory distress. Breathing is unlabored. No wheezes. GASTROINTESTINAL: Not distended. Bowel sounds are normal. No tenderness. GENITOURINARY: No CVA tenderness. MUSCULOSKELETAL: Atraumatic. NEUROLOGICAL: Patient is alert and appropriate. No focal deficit noted. Gait is stable. SKIN: No noted rashes. No diaphoresis. PSYCHIATRIC: Patient is calm. Mood is a little bit paranoid. He did state that he told the voices he was going to kill other people and himself. He has not tried to hurt himself or anyone else yet. Const Vital Signs: 12/04/23 20:55 Temperature 97.8 F Temperature Source Temporal Pulse Rate 86 Respiratory Rate 16 Blood Pressure 156/102 H Blood Pressure Mean 120 Pulse Ox 98 Oxygen Delivery Method Room Air MDM MDM MDM Narrative Medical decision making narrative: Patient is hearing voices much more than when I saw him the other day. They are now telling him to hurt himself and others. He is definitely worsening. I am glad he came back. We will do medical evaluation at this time. He is pink slipped at this point. He will need placement. Patient was seen at the end of my shift since I did not know this patient from the other day. He will need placement. Pending final results. Lab Data Attestation: I reviewed the patient's lab results. Labs: Laboratory Results - last 24 hr 12/04/23 23:05 WBC 8.1 RBC 5.23 Hgb 16.3 Hct 47.2 MCV 90.2 MCH 31.2 MCHC 34.5 RDW Std Deviation 37.4 RDW Coeff of Oziel 11.3 L Plt Count 307 MPV 11.2 Immature Gran % (Auto) 0.200 Neut % (Auto) 61.7 Lymph % (Auto) 28.3 [place] % (Auto) 8.2 Eos % (Auto) 0.7 Baso % (Auto) 0.9 Absolute Neuts (auto) 5.0 Absolute Lymphs (auto) 2.30 Nucleated RBC % 0 Discharge Plan Triage Chief Complaint: Suicidal ED Provider: Norm Andrews Dx/Rx/DC Orders Clinical Impression: Chronic schizophrenia with acute exacerbation Prescriptions: No Action mirtazapine PO QHS brexpiprazole PO QHS Primary Care Provider: Care Physician,No Primary Referrals: Care Physician,No Primary [Primary Care Provider] - Disposition Disposition: Psychiatric Hospital or Unit Discharge Location: [facility] Discharge Date/Time: 12/05/23 10:02
[2023-12-04 23:25] LABS: Basophil# 0.07 X10^3/uL; Basophil% 0.9 % (0-1); Eosinophil# 0.06 X10^3/uL; Eosinophils% 0.7 % (0-5); Hematocrit 47.2 % (40-54); Hemoglobin 16.3 g/dL (13.0-16.5); Lymphocyte % 28.3 % (19-41); Mean Corp Hgb Conc 34.5 g/dL (32-36); Mean Corpuscular Hgb 31.2 pg (27.0-32.0); Mean Corpuscular Volume 90.2 fL (80-94); Mean Platelet Vol. 11.2 fl (6.2-12.0); Monocyte# 0.67 X10^3/uL; Monocyte% 8.2 % (0-10); NRBC Flagged by Analyzer 0 % (0-5); Neutrophil # 5.01 X10^3/uL (2.7-7.7); Neutrophil % 61.7 % (47-70); Platelet Count 307 K/mm3 (150-450); RBC Distribution Width CV 11.3 % (11.6-14.6); RBC Distribution Width SD 37.4 fl (35.1-43.9); Red Blood Count 5.23 M/mm3 (4.6-6.2); White Blood Count 8.1 K/mm3 (4.4-11.0)
[2023-12-04 23:37] LABS: Alcohol, Blood (Medical)-Serum < 3.0 mg/dL
[2023-12-04 23:38] LABS: Anion Gap 5 (5-15); BUN 13 mg/dL (7-18); BUN/Creat Ratio 11.6 RATIO (10-20); Calcium,Total 9.2 mg/dL (8.5-10.1); Chloride 108 mmol/L (98-107); Creatinine, Serum 1.12 mg/dL (0.70-1.30); EST Glomerular Filtration Rate 77 mL/min (>60); Est Glom Filt Rate - Afr Amer 93 mL/min (>60); Estimated Creatinine Clearance 87.67 ml/min; Glucose 98 mg/dL (74-106); Potassium 3.8 mmol/L (3.5-5.1); Sodium Level 140 mmol/L (136-145)
--- NOTE | 2023-12-05 00:07 | ED.RN ---
smita with crisis to be in and evaluate.
[2023-12-05 00:21] LABS: Amphetamine Urine VISTA NEGATIVE (<1000 ng/mL); Barbiturate Urine VISTA NEGATIVE (< 200 ng/mL); Benzodiazepine Urine VISTA NEGATIVE (< 200 ng/mL); Cocaine Urine VISTA NEGATIVE (< 300 ng/mL); Ecstacy Urine VISTA NEGATIVE (< 500 ng/mL); Methadone Urine VISTA NEGATIVE (< 300 ng/mL); PCP Urine VISTA NEGATIVE (< 25 ng/mL); THC Urine VISTA NEGATIVE (< 50 ng/mL); Vista UDS pH Range 5
[2023-12-05 00:54] VITALS: BP 135/65; PULSE 66; RESP 19; TEMP 36.4; O2SAT 99
--- OUTSIDE RECORDS SUMMARY | 2023-12-05 01:16 | XMS RPT_ITS | CCD ---
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 Family/friends, Housing, Intellectual abilities, Mental health services SUPPORT SYSTEMS: Immediate family. PATIENT GOALS FOR TREATMENT: Patient stated goals for treatment are reduce psychoses and aggression CLINICAL SUMMARY: Patient taken to [facility] in [place] by law enforcement after patient had been threatening parents who he lives with and decompensating. Electronically signed by: Alex Hernandez MA.Ed., [facility], [facility] BHT assessment was completed. Reason for [...] repots that he sees a Psychiatrist at [facility], and has been for about 3 [...] own car that he drives. Personal Strengths: [place] Treatment Goal: To feel better . Pt was unsure of what steps he needed to take to work towards this goal[place] [facility] [place] Pt was laying in bed at [...] Eddy Number For RN To RN Communication: [phone] Per pit crew support worker at [facility] in [place] Patient has been threatening parents who he [...] BE BASED ON THE PRIMARY CLINICAL RECORDS. [employer] [facility]. provides no warranty or guarantee of the accuracy or completeness of information in this document.
--- NOTE | 2023-12-05 01:30 | ED.RN ---
MOTHER CALLED IN FOR PT, PT DECLINED SPEAKING WITH HER. TOLD MOTHER TO TRY CALLING BACK IN AM.
[2023-12-05 03:48] VITALS: BP 137/86; PULSE 74; RESP 12; TEMP 37; O2SAT 97
[2023-12-05 04:00] VITALS: RESP 15
--- NOTE | 2023-12-05 06:39 | EKG12_ITS ---
Test Reason : MEDICAL CLEARANCE Blood Pressure : / mmHG Vent. Rate : 074 BPM Atrial Rate : 074 BPM P-R Int : 152 ms QRS Dur : 088 ms QT Int : 384 ms P-R-T Axes : 063 043 042 degrees QTc Int : 426 ms Normal sinus rhythm Normal ECG Confirmed by AARON LOERA, TAN ([id number]), material expeditor PHYLICIA LUGO ([id number]) on 12/07/2023 8:36:11 AM Referred By: Norm Andrews Confirmed By:TAN WALKER MD
--- NOTE | 2023-12-05 07:05 | NURSING ---
ACCEPTED AT GENERATIONS
[2023-12-05 07:12] VITALS: BP 134/89; PULSE 67; RESP 15; TEMP 36.7; O2SAT 97
[2023-12-05 07:27] VITALS: BP 133/88; PULSE 63; RESP 15; TEMP 36.1; O2SAT 99
--- NOTE | 2023-12-05 07:27 | NURSING ---
[facility] CAR WILL BE HERE IN ABOUT AN HOUR
== END 2023-12-05 10:02 ==
LOC: ED 12-05 01:13
PROVIDERS: Emergency Provider Emergency Medicine; Referring Provider Emergency Medicine; Visit Provider Emergency Medicine
DX: R45.851 Suicidal ideations (principal); F20.9 Schizophrenia, unspecified; Z87.891 Personal history of nicotine dependence
CPT/HCPCS: 80048; 80307; 80320; 85025; 87811; 93005; 99284; G0480

== ENCOUNTER → 2025-03-16 | Outpatient (CLI) | payer MEDICAID, SELFPAY ==
[2025-03-16 12:51] LABS: Absolute Lymphocyte Count 2.22 X10^3/uL (0.83-4.51); Absolute Neutrophil Count 4.2 X10^3/uL (2.0-7.7); Basophil# 0.07 X10^3/uL; Basophil% 0.9 % (0-1); Eosinophil# 0.35 X10^3/uL; Eosinophils% 4.6 % (0-5); Hematocrit 42.6 % (40-54); Lymphocyte # 2.22 X10^3/ul (0.83-4.51); Lymphocyte % 28.9 % (19-41); Mean Corp Hgb Conc 35.2 g/dL (32-36); Mean Corpuscular Hgb 32.1 pg (27.0-32.0); Mean Corpuscular Volume 91.2 fL (80-94); Mean Platelet Vol. 11.7 fl (6.2-12.0); Monocyte# 0.85 X10^3/uL; Monocyte% 11.1 % (0-10); NRBC Flagged by Analyzer 0 % (0-5); Neutrophil # 4.17 X10^3/uL (2.7-7.7); Neutrophil % 54.2 % (47-70); Platelet Count 267 K/mm3 (150-450); RBC Distribution Width CV 11.7 % (11.6-14.6); RBC Distribution Width SD 38.8 fl (35.1-43.9); Red Blood Count 4.67 M/mm3 (4.6-6.2); White Blood Count 7.7 K/mm3 (4.4-11.0)
[2025-03-16 13:36] LABS: Hemoglobin A1c 5.1 % (<=5.6)
[2025-03-16 13:58] LABS: ALB/GLOB Ratio 1.7 RATIO (0.9-2.4); AST(SGOT) 18 U/L (<=37); Alanine Aminotransfer ALT/SGPT 18 U/L (<=46); Albumin, Serum 4.6 g/dL (3.5-5.0); Alkaline Phosphatase 46 U/L (40-129); Anion Gap 12 (5-15); BUN 17 mg/dL (4-19); BUN/Creat Ratio 16.1 RATIO (10-20); Calcium,Total 9.7 mg/dL (7.6-11.0); Carbon Dioxide 23.2 mmol/L (21.0-32.0); Chloride 106 mmol/L (98-108); Cholesterol 184 mg/dL (<=200); Creatinine, Serum 1.03 mg/dL (0.70-1.20); EST Glomerular Filtration Rate 93 (>60); Globulin 2.8 g/dL (2.2-4.2); Glucose 91 mg/dL (70-99); High Density Lipoprotein 40 mg/dL; Low Density Lipoprotein Calc. 116 mg/dL; Potassium 4.1 mmol/L (3.3-5.1); Protein, Total 7.4 g/dL (5.9-8.4); Sodium Level 141 mmol/L (133-145); Total Bilirubin 0.27 mg/dL (0.00-1.30); Triglycerides 139 mg/dL; Very Low Density Lipoprotein 28 mg/dL (5-40); cholesterol:hdl ratio screen 4.62
== END | disposition home or self-care (01) ==
LOC: VSLAB 10:33
PROVIDERS: PCP Nurse Practitioner Family; Visit Provider Nurse Practitioner Family
DX: Z13.220 Encounter for screening for lipoid disorders (principal); F20.0 Paranoid schizophrenia; Z13.1 Encounter for screening for diabetes mellitus; E55.9 Vitamin D deficiency, unspecified; F41.8 Other specified anxiety disorders; E29.1 Testicular hypofunction
CPT/HCPCS: 36415; 80053; 80061; 82306; 83036; 84403; 84443; 85025